=== PATIENT | female | born 1940 | race Caucasian/White ===

== ENCOUNTER 2021-08-06 01:25 | Inpatient (IN) | payer MEDICARE, OTHER ==
[2021-08-06] VITALS (9 sets, daily range): BP systolic 158–199; BP diastolic 67–88
[~2021-08-06] VITALS: Ht 147.3 cm; Wt 60.7 kg
[2021-08-06] MEDS ORDERED: OMEP20TA63 PO (02:26)
[2021-08-06] MEDS ORDERED: ASPI-886 PO (02:26)
[2021-08-06] MEDS ORDERED: HYDR-2145 PO (02:26)
[2021-08-06] MEDS ORDERED: iron PO (02:26)
[2021-08-06] MEDS ORDERED: METO25TA2 PO (02:26)
[2021-08-06] MEDS ORDERED: ALPR0.25 PO (02:26)
[2021-08-06] MEDS ORDERED: LISI-130 PO (02:26)
[2021-08-06] MEDS ORDERED: ISOS30TA68 PO (02:26)
[2021-08-06] MEDS ORDERED: LEVO50TA PO (02:26)
[2021-08-06] MEDS ORDERED: CRESTOR40 MG PO (02:26)
[2021-08-06] MEDS: ACETAMINOPHEN 325 MG TABLET. PO PRN ×2 (04:00→14:38)
[2021-08-06] MEDS: LABETALOL 20 MG/4 ML DISP.SYRIN. IVP PRN ×2 (04:00→08:28)
[2021-08-06] MEDS: ONDANSETRON PF 4 MG/2 ML VIAL. IVP PRN ×3 (04:01→20:27)
[2021-08-06] MEDS: PANTOPRAZOLE 40 MG TABLET.DR. PO SCH (05:57)
[2021-08-06] MEDS: LEVOTHYROXINE 50 MCG TABLET PO SCH (05:57)
--- NOTE | 2021-08-06 08:13 | PDOC1 ---
History and Physical Date of Service: DOS: DATE: 08/06/21 TIME: 08:12 Chief Complaint: Chief Complain: Altered mental status. History of Present Illness: HPI: History obtained from discussion with the ED physician and chart review: 80-year-old female with past medical history of hypothyroidism, gastroparesis, hypertension who comes in with altered mental status. Family states that patient has been acting confused for 5 days and the patient also has been complaining of fatigue, nausea or vomiting. Patient was transferred from [facility] ER for evaluation with neurology and possible MRI of the brain to rule out stroke. Patient currently is AAO x4 but currently has bouts of confusion and forgetfulness and she tends to repeat herself during conversation. Denies any falls or obvious trauma. UA is negative for any signs of infection. Normal saline bolus was given at [facility] for possible dehydration. Per GI: She saw Dr. Weiss in clinic in 03/2021 for nausea. Notes indicate Reglan, Zofran, and e-mycin were unhelpful and cardiac stress test and echo were unrevealing. Recommendation made for cardiac cath prior to second GI opinion at . Reviewed notes from encounter w/ Dr. Ramirez at on . She reported spells of nausea for 3-4 days along w/ decreased appetite and early satiety. Previous GES @ [facility] showed 40% retention @ 4 hours per patient. Also c/o constipation (3-4 stools weekly). Recommendation to check cortisol and GES and to try Compazine 10mg TID PRN w/ possible plans to try Relgn if GES is abnormal. Records of suggested testing unavailable for review. The patient reports GES at was normal and that she stopped e-mycin and did well for a month. Records indicate that she's had multiple EGDs. S/p gastric sleeve. Normal colonoscopy in 2019. S/p cholecystectomy. Takes ASA QHS and Advil PRN for headaches which occur when she doesn't eat. Says she was compliant w/ medications (specifically HTN meds) at home and says she takes Prilosec and iron QD. Past Medical/Surgical History: PMH/PSH: PMH: migraine, hypothyroidism, HTN, HLD, GERD, anemia, arthritis PSURGHx: cholecystectomy, hysterectomy, tubal ligation, gastric balloon, gastric sleeve, Allergies: Allergies: Coded Allergies: bacitracin (Verified Allergy, Intermediate, 08/06/21) neomycin (Verified Allergy, Intermediate, 08/06/21) polymyxin B (Verified Allergy, Intermediate, 08/06/21) povidone-iodine (Verified Allergy, Intermediate, 08/06/21) soap (Verified Allergy, Intermediate, 08/06/21) Family History: Family History: Reviewed with no relevant findings in the chart Social History: Social History: Denies any alcohol, drug or tobacco abuse Current Medications: Current Medications Current Medications Aspirin (Ecotrin) 81 mg DAILY PO ; Start 08/06/21 at 09:00 Hydrochlorothiazide (Hydrodiuril) 25 mg DAILY PO ; Start 08/06/21 at 09:00 Isosorbide Mononitrate (Imdur) 30 mg DAILY PO ; Start 08/06/21 at 09:00 Levothyroxine Sodium (Synthroid) 50 mcg DAILY06 PO Last administered on 08/06/21at 05:57; Start 08/06/21 at 06:00 Lisinopril (Prinivil) 40 mg QHS PO ; Start 08/06/21 at 21:00 Metoprolol Succinate (Toprol Xl) 25 mg DAILY PO ; Start 08/06/21 at 09:00 Pantoprazole Sodium (Protonix) 40 mg DAILYAC PO Last administered on 08/06/21at 05:57; Start 08/06/21 at 07:30 Atorvastatin Calcium (Lipitor) 80 mg QHS PO ; Start 08/06/21 at 21:00 Acetaminophen (Tylenol) 650 mg PRN Q6HRS PRN PO MILD PAIN / TEMP > 100.3'F Last administered on 08/06/21at 04:00; Start 08/06/21 at 03:45 Ondansetron HCl (Zofran) 4 mg PRN Q6HRS PRN IVP NAUSEA/VOMITING 1ST CHOICE Last administered on 08/06/21at 04:01; Start 08/06/21 at 03:45 Labetalol HCl (Normodyne Iv Push) 20 mg PRN Q2HR PRN IVP HYPERTENSION Last administered on 08/06/21at 04:00; Start 08/06/21 at 03:45 Active Scripts Active Reported Hydrochlorothiazide Tablet (Hydrochlorothiazide) 25 Mg Tablet 25 Mg PO DAILY Aspirin Ec (Aspirin) 81 Mg Tablet.dr 81 Mg PO DAILY [iron] 65 Mg PO DAILY Xanax (Alprazolam) 0.25 Mg Tablet 0.25 Mg PO PRN Q12HR PRN Prilosec Otc (Omeprazole Magnesium) 20 Mg Tablet.dr 20 Mg PO DAILY Crestor (Rosuvastatin Calcium) 40 Mg Tablet 20 Mg PO HS Isosorbide Mononitrate Er (Isosorbide Mononitrate) 30 Mg Tab.er.24h 30 Mg PO DAILY Synthroid (Levothyroxine Sodium) 50 Mcg Tablet 50 Mcg PO DAILYAC Lisinopril 40 Mg Tablet 40 Mg PO QHS Toprol Xl (Metoprolol Succinate) 25 Mg Tab.er.24h 25 Mg PO DAILY ROS: Review of Systems Review of System REVIEW OF SYSTEMS: GENERAL: Positive for weight loss and fatigue SKIN: No bruising, hair changes or rashes. EYES: No blurred, double or loss of vision. NOSE AND THROAT: No history of nosebleeds, hoarseness or sore throat. HEART: No history of palpitations, chest pain or shortness of breath on exertion. LUNGS: Denies cough, hemoptysis, wheezing or shortness of breath. GASTROINTESTINAL: Positive for nausea GENITOURINARY: No history of frequency, urgency, hesitancy or nocturia. NEUROLOGIC: Denies history of numbness, tingling, or tremor. PSYCHIATRIC: No history of panic, anxiety or depression. ENDOCRINE: No history of heat or cold intolerance, polyuria or polydipsia. EXTREMITIES: Denies joint pain, pain on walking or stiffness. Physical Exam: Vital Signs: Vital Signs Date Time Temp Pulse Resp B/P (MAP) Pulse Ox O2 Delivery O2 Flow Rate FiO2 08/06/21 07:58 98.5 72 18 199/88 (125) 96 Room Air 98.5 Physcial Exam: General: Well developed, well nourished, no acute distress, well appearing HEENT: Pupils equally round and reactive to light, EOMI, no discharge, normal conjunctiva Neck: Supple, no nuchal rigidity, no JVD, trachea midline, no tenderness Cardiac: RRR, no murmurs, no gallops, no rubs Chest/Lungs: CTAB, no wheeze, no rhonchi, no crackles Abdomen: soft, non-distended, no guarding, no peritoneal signs, non-tender Back: No tenderness Extremities: no edema, pulses intact, non-tender,capillary refill <3 sec bilateral upper and lower extremities, Neuro: Alert and oriented x 4, no focal deficits, normal speech Labs: Labs: Labs significant for hemoglobin of 16, sodium of 145, BNP of 1256 potassium 3.4 Images: Images CXR Impression: 1. No acute cardiopulmonary process. Negative head CT Assessment/Plan Assessment/Plan Problem List: Acute encephalopathy Acute metabolic encephalopathy Acute electrolyte derangementhypernatremia suggestive of dehydration. Erythrocytosis suggestive of dehydration Hypertensive urgency JACKELINE due to vasomotor nephropathy ATN Hx of GERD Hx of HTN Hx of gastroparesis Hx of gastric sleeve Hx of hypothyroidism Hx of migraines Admit to hospitalist service for further management Pending brain MRI No obvious centrally acting medications currently. No obvious signs of infection on physical exam. No fevers or nuchal rigidity. CT head is negative for acute etiology. No history or signs of trauma Pending FeNa calculation for volume depletion Pending TSH, B12, folate levels Pending urine toxic drug screen Consider dementia prevention protocol Provide adequate lighting (open curtains during the day, turn the lights off at night) Provide frequent personal contact with family, friends, and staff or TV Encourage early and frequent mobilization Rehab screening ordered IV Haldol as needed for agitation, consider sitter as needed if non-redirectable agitation Avoid physical restraints, catheters or tubes, and benzodiazepines Nutrition consult if there is malnutrition or concern for vitamin deficiencies Continue IV fluids GI consult for gastroparesis Lovenox for DVT prophylaxis Protonix GI prophylaxis ADA diet Full code Discussed with RN and AFIA Dispo inpatient management as above In addition to my E/M visit, advance care planning done with A total time of 20 minutes was spent from 830 to 850 face to face in discussion regarding the patient's goals of care, CODE STATUS. Justifications for Admission Other Justification JANES ANG MD Aug 06, 2021 08:13
[2021-08-06] MEDS: ASPIRIN ENTERIC COATED 81 MG TABLET.DR. PO SCH (08:26)
[2021-08-06] MEDS: METOPROLOL SUCC 24HR ER 25 MG TAB.ER.24H. PO SCH (08:26)
[2021-08-06] MEDS: ISOSORBIDE MONONITRATE ER 30 MG TAB.ER.24H PO SCH (08:26)
[2021-08-06] MEDS: hydroCHLOROthiazide 25 MG TABLET PO SCH (08:26)
--- NOTE | 2021-08-06 12:15 | PDOC2 ---
GI CONSULT Date of Service: DATE: 08/06/21 TIME: 11:42 Reason For Consult: h/o gastroparesis, diarrhea, nausea HPI: HPI: 80 y/o female sent from [facility]. Reviewed notes from there which suggest pt reported decreased appetite, fatigue/weakness, and n/v x 5 days. Then noted to be very forgetful and apparently denied n/v, but vomiting apparently observed by staff. Later, family reported pt acting confused at home x 5 days. Noted w/ hypertension in [facility] ER, sent to [facility] for brain MRI. D/w nurse here - ongoing confusion. Per records available in paper chart, workup @ [facility] included: WBC 10, Hgb 16.7, MCV 94, Cr 1, BUN 19, BNP 1296, lactic 1.8, normal troponin. CXR w/o acute findings. ER note indicates cultures ordered. Pt tells me has had nausea since last Friday w/o precipitating events. First denies vomiting, then reports it, then says "well I'm not eating so there's not much to come out." I asked about diarrhea - she says "some, but I always urinate a lot." Denies abdominal pain and bleeding. Says she's lost 10 pounds this week. Currently no nausea but her water tastes bad (I watched her drink some) and she wants something else to drink. She saw Dr. Weiss in clinic in 03/2021 for nausea. Notes indicate Reglan, Zofran, and e-mycin were unhelpful and cardiac stress test and echo were unreve aling. Recommendation made for cardiac cath prior to second GI opinion at . Reviewed notes from encounter w/ Dr. Ramirez at on . She reported spells of nausea for 3-4 days along w/ decreased appetite and early satiety. Previous GES @ [facility] showed 40% retention @ 4 hours per patient. Also c/o constipation (3-4 stools weekly). Recommendation to check cortisol and GES and to try Compazine 10mg TID PRN w/ possible plans to try Relgn if GES is abnormal. Records of suggested testing unavailable for review. The patient reports GES at was normal and that she stopped e-mycin and did well for a month. Records indicate that she's had multiple EGDs. S/p gastric sleeve. Normal colonoscopy in 2019. S/p cholecystectomy. Takes ASA QHS and Advil PRN for headaches which occur when she doesn't eat. Says she was compliant w/ medications (specifically HTN meds) at home and says she takes Prilosec and iron QD. PMH: PMH: migraine, hypothyroidism, HTN, HLD, GERD, anemia, arthritis cholecystectomy, hysterectomy, tubal ligation, gastric balloon, gastric sleeve, back surgery, ?hernia repair FH: Family History: DM, Hyperlipidemia, Hypertension ROS: GEN: +fatigue HEENT: Denies blurred vision, sore throat CV: Denies chest pain RESP: Denies shortness of air, cough GI: Per HPI : Denies hematuria, dysuria ENDO: +weight loss NEURO: +dizziness sometimes MSK: +headaches SKIN: Denies jaundice, pruritus Vitals: Vitals: Vital Signs Date Time Temp Pulse Resp B/P (MAP) Pulse Ox O2 Delivery O2 Flow Rate FiO2 08/06/21 11:03 98.4 70 18 181/82 (115) 96 Room Air 98.4 Allergies: Coded Allergies: bacitracin (Verified Allergy, Intermediate, 08/06/21) neomycin (Verified Allergy, Intermediate, 08/06/21) polymyxin B (Verified Allergy, Intermediate, 08/06/21) povidone-iodine (Verified Allergy, Intermediate, 08/06/21) soap (Verified Allergy, Intermediate, 08/06/21) Medications: Current Medications Medications (Trade) Dose Ordered Sig/Esha Route PRN Reason Start Time Stop Time Status Last Admin Dose Admin Aspirin (Ecotrin) 81 mg DAILY PO 08/06/21 09:00 08/06/21 08:26 Hydrochlorothiazide (Hydrodiuril) 25 mg DAILY PO 08/06/21 09:00 08/06/21 08:26 Isosorbide Mononitrate (Imdur) 30 mg DAILY PO 08/06/21 09:00 08/06/21 08:26 Levothyroxine Sodium (Synthroid) 50 mcg DAILY06 PO 08/06/21 06:00 08/06/21 05:57 Metoprolol Succinate (Toprol Xl) 25 mg DAILY PO 08/06/21 09:00 08/06/21 08:26 Pantoprazole Sodium (Protonix) 40 mg DAILYAC PO 08/06/21 07:30 08/06/21 05:57 Acetaminophen (Tylenol) 650 mg PRN Q6HRS PRN PO MILD PAIN / TEMP > 100.3'F 08/06/21 03:45 08/06/21 04:00 Ondansetron HCl (Zofran) 4 mg PRN Q6HRS PRN IVP NAUSEA/VOMITING 1ST CHOICE 08/06/21 03:45 08/06/21 04:01 Labetalol HCl (Normodyne Iv Push) 20 mg PRN Q2HR PRN IVP HYPERTENSION 08/06/21 03:45 08/06/21 08:28 Imaging: Imaging: see HPI PE: GEN: NAD HEENT: Atraumatic, PERRL LUNGS: CTAB HEART: RRR ABD: NABS, S/ND/NT EXTREMITY: No edema SKIN: No rashes, no jaundice NEURO/PSYCH: pleasantly confused/forgetful/wandering discussion A/P: A/P: AMS, HTN N/v, early satiety - seems to be a chronic issue - recently had second GI opinion @ [facility] ?GERD S/p gastric sleeve H/o gastroparesis CRC screen - UTD (2019) S/p cholecystectomy Headaches w/ NSAID use R/o COVID ?non-compliance -- Treat HTN, await brain MRI. Okay to advance diet as tolerated and observe per GI - pt asked me for Sprite - d/w nurse. Consider abd imaging if not tolerated. Continue PPI. Seems ?past/current use of e-mycin - consider restarting (though our records indicate this was ineffective). ?diarrhea - observe and evaluate further if truly has this (or constipation as indicated in outside records). PERICO PICKARD Aug 06, 2021 12:15
--- NOTE | 2021-08-06 13:05 | NUR ---
SS following for discharge planning. SS reviewed pt chart and discussed with pt RN. Pt is from home and is currently on room air. Cardiology, GI, and Neurology consulted. Brain MRI ordered. Pt having some confusion. SS will continue to follow for discharge planning.
--- NOTE | 2021-08-06 14:12 | PDOC2 ---
NEUROLOGY CONSULT Date of Service DOS: DATE: 08/06/21 TIME: 14:06 Reason for Consult Reason for Consult: Alok Hayes is an 80-year-old woman who presented to [facility] with confusion. She reports that she has had 5 days of extremely severe nausea. She has known gastroparesis but the nausea was much worse than usual. Her family had noted that she had been acting confused. She was transferred to [facility] emergency room and ultimately transferred to [facility] for further investigation. According to records she was forgetful and had a tendency to repeat herself during a conversation. She does not have a history of trauma to her head. She did not have evidence of a urinary tract infection. She was given a bolus of normal saline at [facility] for possible dehydration. She does recall seeing the GI nurse practitioner earlier today and had seen her previously. Patient claims to have headache but is not unusual as she often has headaches. She does not complain of other pain. She does not complain of weakness or numbness on one side of the body or the other. She has not been eating as much because of the nausea. Past medical history: Migraine headache, hypothyroidism, hypertension, hyperlipidemia, gastroesophageal reflux disease, anemia, arthritis, cholecystectomy, hysterectomy, tubal ligation, gastric sleeve and gastric balloon. Referring Physician Referring Physician: Dr. Matheus Pozo Current Medications Current Medications Current Medications Aspirin (Ecotrin) 81 mg DAILY PO Last administered on 08/06/21at 08:26; Start 08/06/21 at 09:00 Hydrochlorothiazide (Hydrodiuril) 25 mg DAILY PO Last administered on 08/06/21at 08:26; Start 08/06/21 at 09:00 Isosorbide Mononitrate (Imdur) 30 mg DAILY PO Last administered on 08/06/21at 08:26; Start 08/06/21 at 09:00 Levothyroxine Sodium (Synthroid) 50 mcg DAILY06 PO Last administered on 08/06/21at 05:57; Start 08/06/21 at 06:00 Lisinopril (Prinivil) 40 mg QHS PO ; Start 08/06/21 at 21:00 Metoprolol Succinate (Toprol Xl) 25 mg DAILY PO Last administered on 08/06/21at 08:26; Start 08/06/21 at 09:00 Pantoprazole Sodium (Protonix) 40 mg DAILYAC PO Last administered on 08/06/21at 05:57; Start 08/06/21 at 07:30 Atorvastatin Calcium (Lipitor) 80 mg QHS PO ; Start 08/06/21 at 21:00 Acetaminophen (Tylenol) 650 mg PRN Q6HRS PRN PO MILD PAIN / TEMP > 100.3'F Last administered on 08/06/21at 04:00; Start 08/06/21 at 03:45 Ondansetron HCl (Zofran) 4 mg PRN Q6HRS PRN IVP NAUSEA/VOMITING 1ST CHOICE Last administered on 08/06/21at 04:01; Start 08/06/21 at 03:45 Labetalol HCl (Normodyne Iv Push) 20 mg PRN Q2HR PRN IVP HYPERTENSION Last administered on 08/06/21at 08:28; Start 08/06/21 at 03:45 Active Scripts Active Reported Hydrochlorothiazide Tablet (Hydrochlorothiazide) 25 Mg Tablet 25 Mg PO DAILY Aspirin Ec (Aspirin) 81 Mg Tablet.dr 81 Mg PO DAILY [iron] 65 Mg PO DAILY Xanax (Alprazolam) 0.25 Mg Tablet 0.25 Mg PO PRN Q12HR PRN Prilosec Otc (Omeprazole Magnesium) 20 Mg Tablet.dr 20 Mg PO DAILY Crestor (Rosuvastatin Calcium) 40 Mg Tablet 20 Mg PO HS Isosorbide Mononitrate Er (Isosorbide Mononitrate) 30 Mg Tab.er.24h 30 Mg PO DAILY Synthroid (Levothyroxine Sodium) 50 Mcg Tablet 50 Mcg PO DAILYAC Lisinopril 40 Mg Tablet 40 Mg PO QHS Toprol Xl (Metoprolol Succinate) 25 Mg Tab.er.24h 25 Mg PO DAILY Allergies Allergies: Coded Allergies: bacitracin (Verified Allergy, Intermediate, 08/06/21) neomycin (Verified Allergy, Intermediate, 08/06/21) polymyxin B (Verified Allergy, Intermediate, 08/06/21) povidone-iodine (Verified Allergy, Intermediate, 08/06/21) soap (Verified Allergy, Intermediate, 08/06/21) ROS Review of System Constitutional: Negative Eyes: Negative HENT: Negative Respiratory: Negative Cardiovascular: Negative GI: She has had severe nausea. : Negative Musculoskeletal: Negative Neurologic: She has had confusion. Hematologic: Negative Lymphatic: Negative Psychiatric: Negative Physical Exam Physical Examination He was alert, awake and cooperative. She had great difficulty grasping the concepts of the examination. She could eventually accomplish the task but it took quite a bit of explanation for each task. She was in isolation for potential Covid. The speech was fluent and clear. He had a good fund of recent and remote knowledge. Attention and concentration was impaired he was well- groomed and well-nourished. He was fully oriented. She initially could not r emember the name of the hospital but a few minutes later did not recall this fact. She was oriented to month and year. Examination of the cranial nerves revealed visual alvarez were full to confrontation. Extraocular movements were intact. The eyes were conjugate. Pursuit movements were smooth and saccadic movements were without dysmetria. The pupils were 3 millimeters and reacted to light. There was no afferent pupillary defect. Facial sensation was intact. The muscles of mastication and facial expression were powerful symmetrically. Hearing was intact to finger rub. The palate arch symmetrically and the tongue was midline with full range of motion. Sternocleidomastoid and trapezius were powerful bilaterally. Muscle bulk and tone was normal. There was no arm drift or abnormal movement. The power was full and symmetric in the upper extremities. Power was generally diminished with hip, knees and ankles 4+/5 symmetrically. Reflexes were 2/4 and symmetric in the upper and lower extremities. The toes were downgoing bilaterally. Coordination testing with finger to nose, heel to zabala, fine motor and rapid alternating movements was well performed. The sensory examination was intact to pain, light touch, proprioception, graphesthesia, cold thermal and vibration. There was no extinction to double simultaneous stimulation. The gait was not testable. Pulse was strong and symmetric in the hands and feet. Carotid pulse was strong and symmetric. Peripheral pulses are 2/4 at the wrists and feet. There was no edema or cyanosis of the extremities. Vitals VITALS Vital Signs Date Time Temp Pulse Resp B/P (MAP) Pulse Ox O2 Delivery O2 Flow Rate FiO2 08/06/21 11:03 98.4 70 18 181/82 (115) 96 Room Air 98.4 Images Images MRI of the brain is pending. Assessment/Plan Assessment/Plan Patient is a pleasant 80-year-old woman who has had confusion for the last 5 days. I do not see anything focal on her examination. Strength, coordination, sensation and reflexes are symmetric. She does however appear encephalopathic which may be due to poor oral intake. It is reasonable to perform an MRI of her brain to make certain there has not been a stroke and sometimes a stroke in the parietal lobe can provoke some confusion. It is possible there is an underlying dementia so she has a low threshold for developing encephalopathy. We will check labs for deficiency states and inflammation. I appreciate being involved in her care. SONNY CHAPMAN MD Aug 06, 2021 14:12
[2021-08-06] MEDS ORDERED: hydrALAZINE 20 MG/ML VIAL. IVP PRN (14:30)
[2021-08-06] MEDS ORDERED: LISINOPRIL 20 MG TABLET PO SCH (14:30)
--- NOTE | 2021-08-06 16:48 | PDOC2 ---
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 coronary disease REFERRING PHYSICIAN Referring Physician: Dr. Weiss SOURCE Source: Chart review, Patient HISTORY OF PRESENT ILLNESS HISTORY OF PRESENT ILLNESS This is a 80 yo female who presented to [facility] secondary to altered mental status and recurrent nausea/vomiting x 5 days. Family noted patient to be confused all day prior to arrival. Blood pressure was significantly elevated upon arrival. CT head did not show any acute changes. Was transferred to [facility] for MRI. Patient denies any chest pain, palpitations, dizziness, or shortness of breath. Patient has a history of gastroparesis, chronic nausea. She reported spells of nausea for 3-4 days along w/ decreased appetite and early satiety. Has followed with Dr. Weiss on an outpatient basis and also has 2nd opinion at [facility] for same. Recommendation was made for cardiac cath to r/o cardiac etiology, prior to second GI opinion at . PAST MEDICAL HISTORY Cardiovascular: HTN GI: GERD Heme/Onc: Cancer (colon) Endocrine: Hypothyroidism PAST SURGICAL HISTORY Past Surgical History: Cholecystectomy, Tubal Ligation, Hysterectomy, Colon Resection, Other (gastric baloon, gastric sleeve) FAMILY HISTORY Family History: Diabetes, Hypertension SOCIAL HISTORY Smoke: No ALCOHOL: none Drugs: None Lives: Alone CURRENT MEDICATIONS CURRENT MEDICATIONS Current Medications Medications (Trade) Dose Ordered Sig/Esha Route PRN Reason Start Time Stop Time Status Last Admin Dose Admin Aspirin (Ecotrin) 81 mg DAILY PO 08/06/21 09:00 08/06/21 08:26 Hydrochlorothiazide (Hydrodiuril) 25 mg DAILY PO 08/06/21 09:00 08/06/21 08:26 Isosorbide Mononitrate (Imdur) 30 mg DAILY PO 08/06/21 09:00 08/06/21 08:26 Levothyroxine Sodium (Synthroid) 50 mcg DAILY06 PO 08/06/21 06:00 08/06/21 05:57 Metoprolol Succinate (Toprol Xl) 25 mg DAILY PO 08/06/21 09:00 08/06/21 08:26 Pantoprazole Sodium (Protonix) 40 mg DAILYAC PO 08/06/21 07:30 08/06/21 05:57 Acetaminophen (Tylenol) 650 mg PRN Q6HRS PRN PO MILD PAIN / TEMP > 100.3'F 08/06/21 03:45 08/06/21 14:38 Ondansetron HCl (Zofran) 4 mg PRN Q6HRS PRN IVP NAUSEA/VOMITING 1ST CHOICE 08/06/21 03:45 08/06/21 14:47 Labetalol HCl (Normodyne Iv Push) 20 mg PRN Q2HR PRN IVP HYPERTENSION (2ND CHOICE) 08/06/21 03:45 08/06/21 08:28 Hydralazine HCl (Apresoline Inj) 10 mg PRN Q4HRS PRN IVP ELEVATED BP, SEE COMMENTS 08/06/21 14:30 08/06/21 14:38 Amlodipine Besylate (Norvasc) 10 mg DAILY PO 08/06/21 14:30 08/06/21 14:39 ALLERGIES ALLERGIES: Coded Allergies: bacitracin (Verified Allergy, Intermediate, 08/06/21) neomycin (Verified Allergy, Intermediate, 08/06/21) polymyxin B (Verified Allergy, Intermediate, 08/06/21) povidone-iodine (Verified Allergy, Intermediate, 08/06/21) soap (Verified Allergy, Intermediate, 08/06/21) ROS Review of System 14 point ROS conducted with pertinent positives noted above in hPI PHYSICAL EXAM General: Alert, Oriented X3, Cooperative, No acute distress HEENT: Atraumatic Lungs: Clear to auscultation Heart: Regular rate Abdomen: Soft, No tenderness Extremities: No edema, Normal pulses Skin: No significant lesion Neuro: Normal speech, Sensation intact Psych/Mental Status: Mood NL, Other (forgetful ) MUSCULOSKELETAL: Osteoarthritic changes both hands VITALS/I&O VITALS/I&O: Vital Signs Date Time Temp Pulse Resp B/P (MAP) Pulse Ox O2 Delivery O2 Flow Rate FiO2 08/06/21 15:02 98.2 84 18 199/86 (123) 97 Room Air 98.2 I & O 08/05/21 08/05/21 08/06/21 15:00 23:00 07:00 Output Total 100 ml Balance -100 ml LABS Lab: Laboratory Tests Test 08/06/21 14:54 Erythrocyte Sedimentation Rate 2 (0-25) C-Reactive Protein, Quantitative 1.2 mg/L (0-3.3) Thyroid Stimulating Hormone (TSH) 0.663 uIU/mL (0.358-3.74) STRESS TEST STRESS TEST 04/08/13 - Procedure: GATED REGADENOSON THALLIUM MPI STRESS TEST SUMMARY/OPINION: This study is abnormal with what appears to be mild to moderate ischemia in the inferior wall, most likely in the right coronary territory. Global left ventricular function is within normal limits. Other high risk indicators are not noted. This study was read in conjunction with [facility] [employer] In aggregate the current study is intermediate risk in regards to predicted annual cardiovascular mortality rate. ASSESSMENT/PLAN ASSESSMENT/PLAN 1. Metabolic encephalopathy; CT head without acute findings 2. Hypertensive urgency; remains elevated 3. Recurrent nausea/vomiting; GI recommending to r/o cardiac etiology 4. H/o gastroparesis, GERD, gastric sleeve 5. Hypothyroidism Recommendations Add amlodipine for BP control Hydralazine IV PRN Lipids Echocardiogram Probable outpatient ischemic evaluation Supportive care Follow neuro, GI recs NICKO TRIVEDI MD 08/07/21 0930: CARDIAC CONSULT ASSESSMENT/PLAN ASSESSMENT/PLAN Patient seen and examined 08/06/21. Agree with GARDEN CONSULTANT's assessment and plan. Doubt if patient's symptoms are cardiac in etiology Agree with adding amlodipine for better BP control Check 2D echo to assess LVF and rule out WMA Plan ischemic evaluation as outpatient Thank you for your consultation PRISCILLA RUIZ APRN Aug 06, 2021 16:48 NICKO TRIVEDI MD Aug 07, 2021 09:30
[2021-08-06] MEDS: ATORVASTATIN CALCIUM 40 MG TABLET. PO SCH (20:27)
[2021-08-06] MEDS: LISINOPRIL 20 MG TABLET PO SCH (20:28)
[2021-08-07 03:35] VITALS: BP 157/69
[2021-08-07] MEDS: PANTOPRAZOLE 40 MG TABLET.DR. PO SCH (04:57)
[2021-08-07] MEDS: ONDANSETRON PF 4 MG/2 ML VIAL. IVP PRN (04:57)
[2021-08-07] MEDS: LEVOTHYROXINE 50 MCG TABLET PO SCH (04:57)
[2021-08-07 07:00] VITALS: BP 169/74
[2021-08-07 07:10] LABS: CHOLESTEROL/HDL RATIO 2.1
[2021-08-07 09:04] LABS: BASO % 1 % (0-3); EOS # 0.1 x10^3/uL (0.0-0.7); EOS % 2 % (0-3); HEMATOCRIT 47.3 % (36.0-47.0); HEMOGLOBIN 15.8 g/dL (12.0-15.5); LYMPH # 1.7 x10^3/uL (1.0-4.8); LYMPH % 20 % (24-48); MEAN CORPUSCULAR HEMOGLOBIN 31 pg (25-35); MEAN CORPUSCULAR HGB CONC 33 g/dL (31-37); MEAN CORPUSCULAR VOLUME 93 fL (79-100); MONO # 1.2 x10^3/uL (0.0-1.1); MONO % 14 % (0-9); NEUT # 5.6 x10^3/uL (1.8-7.7); NEUT % 64 % (31-73); PLATELET COUNT 195 x10^3/uL (140-400); RED CELL DISTRIBUTION WIDTH 15.5 % (11.5-14.5); WHITE BLOOD COUNT 8.6 x10^3/uL (4.0-11.0)
[2021-08-07 09:06] LABS: CALCIUM 9.6 mg/dL (8.5-10.1); CREATININE 0.9 mg/dL (0.6-1.0); GFR 60.1; MAGNESIUM 1.8 mg/dL (1.8-2.4)
[2021-08-07 09:19] LABS: POTASSIUM 2.9 mmol/L (3.5-5.1)
[2021-08-07] MEDS: hydroCHLOROthiazide 25 MG TABLET PO SCH (10:05)
[2021-08-07] MEDS: ASPIRIN ENTERIC COATED 81 MG TABLET.DR. PO SCH (10:05)
[2021-08-07] MEDS: METOPROLOL SUCC 24HR ER 25 MG TAB.ER.24H. PO SCH (10:07)
[2021-08-07] MEDS: ISOSORBIDE MONONITRATE ER 30 MG TAB.ER.24H PO SCH (10:08)
--- NOTE | 2021-08-07 10:10 | PDOC ---
Date of Service: DATE: 08/07/21 TIME: 10:05 Subjective: Subjective: Feeling better than she has in a long time. Back from echo, ate some of sausage. Doesn't want eggs or pancakes but would like toast. Didn't eat much yesterday. Denies vomiting and diarrhea since admission. Objective: Objective: Brain MRI ordered. Vital Signs: Vital Signs Date Time Temp Pulse Resp B/P (MAP) Pulse Ox O2 Delivery O2 Flow Rate FiO2 08/07/21 07:00 98.8 79 18 169/74 (105) 95 Room Air 98.8 Imaging: Echo 08/07 pending PE: GEN: NAD LUNGS: CTAB HEART: RRR ABD: S/ND/NT NEURO/PSYCH: A & O 3 A/P: Encephalopathy, HTN - neuro and cardiology following Chronic n/v, s/p gastric sleeve - recent GI eval @ [facility] Hypokalemia - per primary -- Appreciate cardiology help - recommendation for ischemic eval as outpt. Trying PO - observe. (I passed along her request for toast to staff who ordered from kitchen.) Continue PPI. Justicifation of Admission Dx: Justifications for Admission: Justification of Admission Dx: Yes PERICO PICKARD Aug 07, 2021 10:10
[2021-08-07 10:30] VITALS: BP 138/65
--- NOTE | 2021-08-07 11:32 | NUR ---
SS following up with discharge planning. SS reviewed pt chart and discussed with pt RN. Pt is currently on room air. Cardiology, Neurology, and GI following. Potassium 2.9. Brain MRI ordered. ECHO this AM. PO diet. Probable need for PT/OT to assess prior to discharge. SS will continue to follow for discharge planning.
--- NOTE | 2021-08-07 12:06 | PDOC ---
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 08/07/21 1206: CARDIO Progress Notes Date and Time Date of Service 08/07/2021 Time of Evaluation 1140 Subjective Subjective: No Chest Pain, No shortness of breath, No Palpitations Vitals Vitals Vital Signs Date Time Temp Pulse Resp B/P (MAP) Pulse Ox O2 Delivery O2 Flow Rate FiO2 08/07/21 10:30 98.9 81 16 138/65 (89) 96 Room Air 98.9 Weight Weight [ ] Input and Output Intake and Output Intake and Output 08/07/21 07:00 Intake Total 530 ml Output Total 700 ml Balance -170 ml Intake Oral 530 ml Output Urine Total 700 ml # Voids 5 Laboratory Labs Laboratory Tests Test 08/06/21 14:54 08/07/21 05:20 Erythrocyte Sedimentation Rate 2 (0-25) C-Reactive Protein, Quantitative 1.2 mg/L (0-3.3) Vitamin B12 Level 409 pg/mL (247-911) Thyroid Stimulating Hormone (TSH) 0.663 uIU/mL (0.358-3.74) White Blood Count 8.6 x10^3/uL (4.0-11.0) Red Blood Count 5.10 x10^6/uL (3.50-5.40) Hemoglobin 15.8 g/dL (12.0-15.5) Hematocrit 47.3 % (36.0-47.0) Mean Corpuscular Volume 93 fL (79-100) Mean Corpuscular Hemoglobin 31 pg (25-35) Mean Corpuscular Hemoglobin Concent 33 g/dL (31-37) Red Cell Distribution Width 15.5 % (11.5-14.5) Platelet Count 195 x10^3/uL (140-400) Neutrophils (%) (Auto) 64 % (31-73) Lymphocytes (%) (Auto) 20 % (24-48) Monocytes (%) (Auto) 14 % (0-9) Eosinophils (%) (Auto) 2 % (0-3) Basophils (%) (Auto) 1 % (0-3) Neutrophils # (Auto) 5.6 x10^3/uL (1.8-7.7) Lymphocytes # (Auto) 1.7 x10^3/uL (1.0-4.8) Monocytes # (Auto) 1.2 x10^3/uL (0.0-1.1) Eosinophils # (Auto) 0.1 x10^3/uL (0.0-0.7) Basophils # (Auto) 0.0 x10^3/uL (0.0-0.2) Sodium Level 143 mmol/L (136-145) Potassium Level 2.9 mmol/L (3.5-5.1) Chloride Level 102 mmol/L (98-107) Carbon Dioxide Level 30 mmol/L (21-32) Anion Gap 11 (6-14) Blood Urea Nitrogen 10 mg/dL (7-20) Creatinine 0.9 mg/dL (0.6-1.0) Estimated GFR (Cockcroft-Gault) 60.1 Glucose Level 100 mg/dL (70-99) Calcium Level 9.6 mg/dL (8.5-10.1) Magnesium Level 1.8 mg/dL (1.8-2.4) Triglycerides Level 79 mg/dL (0-150) Cholesterol Level 168 mg/dL (0-200) LDL Cholesterol, Calculated 71 mg/dL (0-100) VLDL Cholesterol, Calculated 16 mg/dL (0-40) Non-HDL Cholesterol Calculated 87 mg/dL (0-129) HDL Cholesterol 81 mg/dL (40-60) Cholesterol/HDL Ratio 2.1 Physical Exam HEENT: Neck Supple W Full Motion Chest: Symmetric LUNGS: Clear to Auscultation Heart: S1S2, RRR (SR possible WAP) Abdomen: Soft N/T Extremities: No Edema, No Calf Tenderness Neurology: alert, oriented, follow commands Assessment Assessment 1. Metabolic encephalopathy; CT head without acute findings Resolved 2. Hypertensive urgency; better 3. Recurrent nausea/vomiting; GI recommending to r/o cardiac etiology. no further n/v 4. H/o gastroparesis, GERD, gastric sleeve 5. Hypothyroidism 6. Hypokalemia Recommendations Continue current BP regimen. Replace K TTE Probable outpatient ischemic evaluation Supportive care Follow neuro, GI recs Justicifation of Admission Dx: Justifications for Admission: Justification of Admission Dx: Yes NICKO TRIVEDI MD 08/07/21 5346: CARDIO Progress Notes Assessment Assessment Patient seen and examined. Agree with HOOKER INSPECTOR's assessment and plan. Nausea vomiting improved. Doubt if patient's symptoms are cardiac in etiology Blood pressure better controlled. Check 2D echo to assess LVF and rule out WMA Plan ischemic evaluation as outpatient JAZMIN AGUIRRE APRN Aug 07, 2021 12:06 NICKO TRIVEDI MD Aug 07, 2021 16:26
[2021-08-07] MEDS: POTASSIUM CHLORIDE 20 MEQ TABLET.ER. PO SCH ×3 (12:14→20:31)
--- NOTE | 2021-08-07 12:59 | PDOC ---
[employer] PROGRESS NOTE Date of Service DOS: DATE: 08/07/21 TIME: 12:54 Chief Complaint Chief Complaint Assessment/Plan Problem List: Acute encephalopathy Acute metabolic encephalopathy Acute electrolyte derangementhypernatremia suggestive of dehydration. Erythrocytosis suggestive of dehydration Hypertensive urgency JACKELINE due to vasomotor nephropathy ATN Hx of GERD Hx of HTN Hx of gastroparesis Hx of gastric sleeve Hx of hypothyroidism Hx of migraines Cardiology consulted for CAD work-up. Pending echo Pending brain MRI No obvious centrally acting medications currently. No obvious signs of infection on physical exam. No fevers or nuchal rigidity. CT head is negative for acute etiology. No history or signs of trauma Pending FeNa calculation for volume depletion Pending TSH, B12, folate levels Pending urine toxic drug screen Consider dementia prevention protocol Provide adequate lighting (open curtains during the day, turn the lights off at night) Provide frequent personal contact with family, friends, and staff or TV Encourage early and frequent mobilization Rehab screening ordered IV Haldol as needed for agitation, consider sitter as needed if non-redirectable agitation Avoid physical restraints, catheters or tubes, and benzodiazepines Nutrition consult if there is malnutrition or concern for vitamin deficiencies Continue IV fluids GI consult for gastroparesis Lovenox for DVT prophylaxis Protonix GI prophylaxis ADA diet Full code Discussed with RN and SW Dispo inpatient management as above History of Present Illness History of Present Illness 80-year-old female with past medical history of hypothyroidism, gastroparesis, hypertension who comes in with altered mental status. Family states that patient has been acting confused for 5 days and the patient also has been c omplaining of fatigue, nausea or vomiting. Patient was transferred from [facility] ER for evaluation with neurology and possible MRI of the brain to rule out stroke. Patient currently is AAO x4 but currently has bouts of confusion and forgetfulness and she tends to repeat herself during conversation. Denies any falls or obvious trauma. UA is negative for any signs of infection. Normal saline bolus was given at [facility] for possible dehydration. Per GI: She saw Dr. Weiss in clinic in 03/2021 for nausea. Notes indicate Reglan, Zofran, and e-mycin were unhelpful and cardiac stress test and echo were unrevealing. Recommendation made for cardiac cath prior to second GI opinion at . Reviewed notes from encounter w/ Dr. Ramirez at on . She reported spells of nausea for 3-4 days along w/ decreased appetite and early satiety. Previous GES @ [facility] showed 40% retention @ 4 hours per patient. Also c/o constipation (3-4 stools weekly). Recommendation to check cortisol and GES and to try Compazine 10mg TID PRN w/ possible plans to try Relgn if GES is abnormal. Records of suggested testing unavailable for review. The patient reports GES at was normal and that she stopped e-mycin and did well for a month. Records indicate that she's had multiple EGDs. S/p gastric sleeve. Normal colonoscopy in 2019. S/p cholecystectomy. Takes ASA QHS and Advil PRN for headaches which occur when she doesn't eat. Says she was compliant w/ medications (specifically HTN meds) at home and says she takes Prilosec and iron QD. 08/07/2021 No acute events overnight. Patient seen examined bedside. Does not like the food in the hospital. Denies any vomiting. Pleasantly confused and forgetful. Potassium of 2.9 will replace with IV NPO potassium chloride. Vitals/I&O Vitals/I&O: Vital Signs Date Time Temp Pulse Resp B/P (MAP) Pulse Ox O2 Delivery O2 Flow Rate FiO2 08/07/21 10:30 98.9 81 16 138/65 (89) 96 Room Air 98.9 I & O 08/06/21 08/06/21 08/07/21 15:00 23:00 07:00 Intake Total 400 ml 130 ml Output Total 400 ml 300 ml Balance 0 ml -170 ml Physical Exam General: Alert, Oriented X3, Cooperative, No acute distress Heart: Regular rate Abdomen: Soft, No tenderness Extremities: No edema, Normal pulses Skin: No significant lesion Labs Labs: Laboratory Tests Test 08/06/21 14:54 08/07/21 05:20 Erythrocyte Sedimentation Rate 2 (0-25) C-Reactive Protein, Quantitative 1.2 mg/L (0-3.3) Vitamin B12 Level 409 pg/mL (247-911) Thyroid Stimulating Hormone (TSH) 0.663 uIU/mL (0.358-3.74) White Blood Count 8.6 x10^3/uL (4.0-11.0) Red Blood Count 5.10 x10^6/uL (3.50-5.40) Hemoglobin 15.8 g/dL (12.0-15.5) Hematocrit 47.3 % (36.0-47.0) Mean Corpuscular Volume 93 fL (79-100) Mean Corpuscular Hemoglobin 31 pg (25-35) Mean Corpuscular Hemoglobin Concent 33 g/dL (31-37) Red Cell Distribution Width 15.5 % (11.5-14.5) Platelet Count 195 x10^3/uL (140-400) Neutrophils (%) (Auto) 64 % (31-73) Lymphocytes (%) (Auto) 20 % (24-48) Monocytes (%) (Auto) 14 % (0-9) Eosinophils (%) (Auto) 2 % (0-3) Basophils (%) (Auto) 1 % (0-3) Neutrophils # (Auto) 5.6 x10^3/uL (1.8-7.7) Lymphocytes # (Auto) 1.7 x10^3/uL (1.0-4.8) Monocytes # (Auto) 1.2 x10^3/uL (0.0-1.1) Eosinophils # (Auto) 0.1 x10^3/uL (0.0-0.7) Basophils # (Auto) 0.0 x10^3/uL (0.0-0.2) Sodium Level 143 mmol/L (136-145) Potassium Level 2.9 mmol/L (3.5-5.1) Chloride Level 102 mmol/L (98-107) Carbon Dioxide Level 30 mmol/L (21-32) Anion Gap 11 (6-14) Blood Urea Nitrogen 10 mg/dL (7-20) Creatinine 0.9 mg/dL (0.6-1.0) Estimated GFR (Cockcroft-Gault) 60.1 Glucose Level 100 mg/dL (70-99) Calcium Level 9.6 mg/dL (8.5-10.1) Magnesium Level 1.8 mg/dL (1.8-2.4) Triglycerides Level 79 mg/dL (0-150) Cholesterol Level 168 mg/dL (0-200) LDL Cholesterol, Calculated 71 mg/dL (0-100) VLDL Cholesterol, Calculated 16 mg/dL (0-40) Non-HDL Cholesterol Calculated 87 mg/dL (0-129) HDL Cholesterol 81 mg/dL (40-60) Cholesterol/HDL Ratio 2.1 Comment Review of Relevant I have reviewed the following items andrew (where applicable) has been applied. Medications: Current Medications Medications (Trade) Dose Ordered Sig/Esha Route PRN Reason Start Time Stop Time Status Last Admin Dose Admin Lisinopril (Prinivil) 40 mg QHS PO 08/06/21 21:00 08/06/21 20:28 Atorvastatin Calcium (Lipitor) 80 mg QHS PO 08/06/21 21:00 08/06/21 20:27 Hydralazine HCl (Apresoline Inj) 10 mg PRN Q4HRS PRN IVP ELEVATED BP, SEE COMMENTS 08/06/21 14:30 08/06/21 14:38 Amlodipine Besylate (Norvasc) 10 mg DAILY PO 08/06/21 14:30 08/07/21 09:00 Potassium Chloride (Klor-Con) 40 meq Q4HRS PO 08/07/21 12:00 08/07/21 16:01 08/07/21 12:14 Justifications for Admission Other Justification JANES ANG MD Aug 07, 2021 12:59
[2021-08-07] MEDS ORDERED: POTASSIUM CHLORIDE 20 MEQ TABLET.ER. PO ONE (13:00)
[2021-08-07 14:33] VITALS: BP 142/64
--- NOTE | 2021-08-07 15:21 | RAD ---
EXAM: Brain MRI without contrast. HISTORY: Confusion. TECHNIQUE: Multiplanar, multisequence magnetic resonance imaging of the brain was performed without c ontrast. COMPARISON: Head CT dated 08/05/2021. FINDINGS: There is no restricted diffusion to suggest acute or subacute infarction. There is no mass effect or midline shift. There is no susceptibility effect. There is mild cerebral volume loss. There are nonspecific focal areas of signal change within the cerebral white matter, likely due to chronic small vessel disease. There is no evidence of lens surgery. There is a tiny right maxillary sinus mu cous retention cyst. The mastoid air cells are unremarkable. There are normal flow voids within the c erebral vessels. There is no suspicious calvarial lesion. There is degenerative change involving the cervical spine. IMPRESSION: 1. No acute intracranial finding. 2. Scattered focal areas of signal change within the cerebral white matter, most commonly due to levee superintendent barbara small vessel disease in patients of this age. 3. Mild age-appropriate cerebral volume loss. Electronically signed by: An Perry MD (08/07/2021 3:18 PM) [id number]
--- NOTE | 2021-08-07 17:03 | CARD ---
MR#: [id number] Date of Study: 08/07/2021 Ordering Physician: PRISCILLA RUIZ, Referring Physician: PRISCILLA RUIZ, Tech: Shelly Vincent [facility] APPROVED REPORT EXAM: Two-dimensional and M-mode echocardiogram with Doppler and color Doppler. Other Information Quality : AverageHR: 80bpm Rhythm : NSR INDICATION Abnormal ECG Fatigue RISK FACTORS Hypertension 2D DIMENSIONS RVDd2.5 (2.9-3.5cm)Left Atrium(2D)3.3 (1.6-4.0cm) IVSd1.2 (0.7-1.1cm)Aortic Root(2D)2.7 (2.0-3.7cm) LVDd4.2 (3.9-5.9cm)LVOT Diameter2.0 (1.8-2.4cm) PWd1.1 (0.7-1.1cm)IVSs1.6 (0.8-1.2cm) LVDs2.6 (2.5-4.0cm)FS (%) 37.6 % PWs1.7 (0.8-1.2cm)SV54.0 ml LVEF(%)68.1 (>50%) Aortic Valve AoV Peak Richard.123.0cm/sAoV VTI16.3cm AO Peak GR.6.1mmHgLVOT Peak Richard.109.5cm/s LVOT VTI 17.28cmAO Mean GR.3mmHg HARINDER (VMAX)2.24kd7KVC (VTI)3.22cm2 Mitral Valve MV E Delwdexy72.7cm/sMV DECEL [id number] MV A Idkrifnr33.9cm/sMV CKN75my E/A Ratio0.4MVA (PHT)4.47cm2 TDI E/Lateral E'5.6E/Medial E'6.2 Pulmonary Valve PV Peak Aswfzgzm642.4cm/sPV Peak Grad.4mmHg Tricuspid Valve TR P. Tbyywmle296qr/sTR Peak Gr.22mmHg LEFT VENTRICLE The left ventricle is normal size. There is mild concentric left ventricular hypertrophy. The left ve ntricular systolic function is normal and the ejection fraction is within normal range. Estimated eje ction fraction 65%. There is normal LV segmental wall motion. Transmitral Doppler flow pattern is Gra de I-abnormal relaxation pattern. RIGHT VENTRICLE The right ventricle is normal size. There is normal right ventricular wall thickness. The right ventr icular systolic function is normal. ATRIA The left atrium size is normal. The right atrium size is normal. The interatrial septum is intact wit h no evidence for an atrial septal defect or patent foramen ovale as noted on 2-D or Doppler imaging. AORTIC VALVE The aortic valve is normal in structure and function. Doppler and Color Flow revealed no significant aortic regurgitation. There is no significant aortic valvular stenosis. MITRAL VALVE The mitral valve is normal in structure and function. There is no evidence of mitral valve prolapse. There is no mitral valve stenosis. Doppler and Color Flow revealed no mitral valve regurgitation note d. TRICUSPID VALVE The tricuspid valve is normal in structure and function. Doppler and Color Flow revealed mild tricusp id regurgitation. Estimated PAP 25-30 mmHg. There is no tricuspid valve stenosis. PULMONIC VALVE Doppler and Color Flow revealed no pulmonic valvular regurgitation. There is no pulmonic valvular nic nosis. GREAT VESSELS The aortic root is normal in size. The ascending aorta is normal in size. The IVC is normal in size a nd collapses >50% with inspiration. PERICARDIAL EFFUSION There is no evidence of significant pericardial effusion. Critical Notification Critical Value: No <Conclusion> The left ventricular systolic function is normal and the ejection fraction is within normal range. E stimated ejection fraction 65%. There is normal LV segmental wall motion. Doppler and Color Flow revealed mild tricuspid regurgitation. Estimated PAP 25-30 mmHg. Signed by : Taiwo Gupta, Electronically Approved : 08/07/2021 17:03:09
--- NOTE | 2021-08-07 17:45 | PDOC ---
PROGRESS NOTES Date of Service DATE: 08/07/21 TIME: 17:42 Assessment 1. Patient has been encephalopathic possibly from poor oral intake and dehydration. She is clinically improving. She is much more animated and alert. She clearly remembers meeting me yesterday and the issues we discussed. I am still concerned there may be underlying dementia but this can be tested after she has recovered from this acute illness and as an outpatient. I am relieved that the MRI brain did not reveal evidence for acute stroke. Current exam continues to be nonfocal. She may be dismissed from a neurologic perspective when medically stable. 2. She has gastroparesis which she informed me not less than 4 times during our conversation. 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 Subjective I am feeling much better. I do not like the food here and I do not even like the taste of the water. I can drink cranberry juice. The lunch look good but it tasted horrible. Objective Vital Signs Date Time Temp Pulse Resp B/P (MAP) Pulse Ox O2 Delivery O2 Flow Rate FiO2 08/07/21 14:33 98.7 79 18 142/64 (90) 94 Room Air 98.7 Intake and Output 08/07/21 07:00 Intake Total 530 ml Output Total 700 ml Balance -170 ml Intake Oral 530 ml Output Urine Total 700 ml # Voids 5 PHYSICAL EXAM She was alert, awake and cooperative. Speech was somewhat rapid. She did have a tendency to repeat herself at times. The eyes were conjugate and face was symmetric. Movements were symmetric and well coordinated. Sitting balance was normal. Review of Relevant I have reviewed the following items andrew (where applicable) has been applied. Labs Laboratory Tests Test 08/06/21 14:54 08/07/21 05:20 Erythrocyte Sedimentation Rate 2 (0-25) C-Reactive Protein, Quantitative 1.2 mg/L (0-3.3) Vitamin B12 Level 409 pg/mL (247-911) Thyroid Stimulating Hormone (TSH) 0.663 uIU/mL (0.358-3.74) White Blood Count 8.6 x10^3/uL (4.0-11.0) Red Blood Count 5.10 x10^6/uL (3.50-5.40) Hemoglobin 15.8 g/dL (12.0-15.5) Hematocrit 47.3 % (36.0-47.0) Mean Corpuscular Volume 93 fL (79-100) Mean Corpuscular Hemoglobin 31 pg (25-35) Mean Corpuscular Hemoglobin Concent 33 g/dL (31-37) Red Cell Distribution Width 15.5 % (11.5-14.5) Platelet Count 195 x10^3/uL (140-400) Neutrophils (%) (Auto) 64 % (31-73) Lymphocytes (%) (Auto) 20 % (24-48) Monocytes (%) (Auto) 14 % (0-9) Eosinophils (%) (Auto) 2 % (0-3) Basophils (%) (Auto) 1 % (0-3) Neutrophils # (Auto) 5.6 x10^3/uL (1.8-7.7) Lymphocytes # (Auto) 1.7 x10^3/uL (1.0-4.8) Monocytes # (Auto) 1.2 x10^3/uL (0.0-1.1) Eosinophils # (Auto) 0.1 x10^3/uL (0.0-0.7) Basophils # (Auto) 0.0 x10^3/uL (0.0-0.2) Sodium Level 143 mmol/L (136-145) Potassium Level 2.9 mmol/L (3.5-5.1) Chloride Level 102 mmol/L (98-107) Carbon Dioxide Level 30 mmol/L (21-32) Anion Gap 11 (6-14) Blood Urea Nitrogen 10 mg/dL (7-20) Creatinine 0.9 mg/dL (0.6-1.0) Estimated GFR (Cockcroft-Gault) 60.1 Glucose Level 100 mg/dL (70-99) Calcium Level 9.6 mg/dL (8.5-10.1) Magnesium Level 1.8 mg/dL (1.8-2.4) Triglycerides Level 79 mg/dL (0-150) Cholesterol Level 168 mg/dL (0-200) LDL Cholesterol, Calculated 71 mg/dL (0-100) VLDL Cholesterol, Calculated 16 mg/dL (0-40) Non-HDL Cholesterol Calculated 87 mg/dL (0-129) HDL Cholesterol 81 mg/dL (40-60) Cholesterol/HDL Ratio 2.1 Laboratory Tests Test 08/07/21 05:20 White Blood Count 8.6 x10^3/uL (4.0-11.0) Red Blood Count 5.10 x10^6/uL (3.50-5.40) Hemoglobin 15.8 g/dL (12.0-15.5) Hematocrit 47.3 % (36.0-47.0) Mean Corpuscular Volume 93 fL (79-100) Mean Corpuscular Hemoglobin 31 pg (25-35) Mean Corpuscular Hemoglobin Concent 33 g/dL (31-37) Red Cell Distribution Width 15.5 % (11.5-14.5) Platelet Count 195 x10^3/uL (140-400) Neutrophils (%) (Auto) 64 % (31-73) Lymphocytes (%) (Auto) 20 % (24-48) Monocytes (%) (Auto) 14 % (0-9) Eosinophils (%) (Auto) 2 % (0-3) Basophils (%) (Auto) 1 % (0-3) Neutrophils # (Auto) 5.6 x10^3/uL (1.8-7.7) Lymphocytes # (Auto) 1.7 x10^3/uL (1.0-4.8) Monocytes # (Auto) 1.2 x10^3/uL (0.0-1.1) Eosinophils # (Auto) 0.1 x10^3/uL (0.0-0.7) Basophils # (Auto) 0.0 x10^3/uL (0.0-0.2) Sodium Level 143 mmol/L (136-145) Potassium Level 2.9 mmol/L (3.5-5.1) Chloride Level 102 mmol/L (98-107) Carbon Dioxide Level 30 mmol/L (21-32) Anion Gap 11 (6-14) Blood Urea Nitrogen 10 mg/dL (7-20) Creatinine 0.9 mg/dL (0.6-1.0) Estimated GFR (Cockcroft-Gault) 60.1 Glucose Level 100 mg/dL (70-99) Calcium Level 9.6 mg/dL (8.5-10.1) Magnesium Level 1.8 mg/dL (1.8-2.4) Triglycerides Level 79 mg/dL (0-150) Cholesterol Level 168 mg/dL (0-200) LDL Cholesterol, Calculated 71 mg/dL (0-100) VLDL Cholesterol, Calculated 16 mg/dL (0-40) Non-HDL Cholesterol Calculated 87 mg/dL (0-129) HDL Cholesterol 81 mg/dL (40-60) Cholesterol/HDL Ratio 2.1 Medications Current Medications Aspirin (Ecotrin) 81 mg DAILY PO Last administered on 08/07/21 10:05; Start 08/06/21 at 09:00 Hydrochlorothiazide (Hydrodiuril) 25 mg DAILY PO Last administered on 08/07/21 10:05; Start 08/06/21 at 09:00 Isosorbide Mononitrate (Imdur) 30 mg DAILY PO Last administered on 08/07/21 10:08; Start 08/06/21 at 09:00 Levothyroxine Sodium (Synthroid) 50 mcg DAILY06 PO Last administered on 08/07/21 04:57; Start 08/06/21 at 06:00 Lisinopril (Prinivil) 40 mg QHS PO Last administered on 08/06/21 20:28; Start 08/06/21 at 21:00 Metoprolol Succinate (Toprol Xl) 25 mg DAILY PO Last administered on 08/07/21 10:07; Start 08/06/21 at 09:00 Pantoprazole Sodium (Protonix) 40 mg DAILYAC PO Last administered on 08/07/21 04:57; Start 08/06/21 at 07:30 Atorvastatin Calcium (Lipitor) 80 mg QHS PO Last administered on 08/06/21 20:27; Start 08/06/21 at 21:00 Acetaminophen (Tylenol) 650 mg PRN Q6HRS PRN PO MILD PAIN / TEMP > 100.3'F Last administered on 08/06/21 14:38; Start 08/06/21 at 03:45 Ondansetron HCl (Zofran) 4 mg PRN Q6HRS PRN IVP NAUSEA/VOMITING 1ST CHOICE Last administered on 08/07/21 04:57; Start 08/06/21 at 03:45 Labetalol HCl (Normodyne Iv Push) 20 mg PRN Q2HR PRN IVP HYPERTENSION (2ND CHOICE) Last administered on 08/06/21 08:28; Start 08/06/21 at 03:45 Lisinopril (Prinivil) 20 mg DAILY PO ; Start 08/06/21 at 14:30; Status UNV Hydralazine HCl (Apresoline Inj) 10 mg PRN Q4HRS PRN IVP ELEVATED BP, SEE COMMENTS Last administered on 08/06/21at 14:38; Start 08/06/21 at 14:30 Amlodipine Besylate (Norvasc) 10 mg DAILY PO Last administered on 08/07/21at 09:00; Start 08/06/21 at 14:30 Potassium Chloride (Klor-Con) 40 meq Q4HRS PO Last administered on 08/07/21at 15:55; Start 08/07/21 at 12:00; Stop 08/07/21 at 16:01; Status DC Potassium Chloride (Klor-Con) 40 meq BID PO ; Start 08/07/21 at 21:00; Stop 08/08/21 at 20:59 Potassium Chloride (Klor-Con) 40 meq 1X ONCE PO ; Start 08/07/21 at 13:00; Stop 08/07/21 at 13:01; Status Cancel Active Scripts Active Reported Hydrochlorothiazide Tablet (Hydrochlorothiazide) 25 Mg Tablet 25 Mg PO DAILY Aspirin Ec (Aspirin) 81 Mg Tablet.dr 81 Mg PO DAILY [iron] 65 Mg PO DAILY Xanax (Alprazolam) 0.25 Mg Tablet 0.25 Mg PO PRN Q12HR PRN Prilosec Otc (Omeprazole Magnesium) 20 Mg Tablet. 20 Mg PO DAILY Crestor (Rosuvastatin Calcium) 40 Mg Tablet 20 Mg PO HS Isosorbide Mononitrate Er (Isosorbide Mononitrate) 30 Mg Tab.er.24h 30 Mg PO DAILY Synthroid (Levothyroxine Sodium) 50 Mcg Tablet 50 Mcg PO DAILYAC Lisinopril 40 Mg Tablet 40 Mg PO QHS Toprol Xl (Metoprolol Succinate) 25 Mg Tab.er.24h 25 Mg PO DAILY Vitals/I & O Vital Sign - Last 24 Hours 08/06/21 08/06/21 08/06/21 08/06/21 19:55 20:00 20:28 22:55 Temp 98.8 97.8 98.8 97.8 Pulse 75 75 80 Resp 18 18 B/P (MAP) 173/70 (104) 173/70 165/72 (103) Pulse Ox 97 94 O2 Delivery Room Air Room Air Room Air 08/07/21 08/07/21 08/07/21 08/07/21 03:35 07:00 08:00 09:00 Temp 99.0 98.8 99.0 98.8 Pulse 78 79 80 Resp 18 18 B/P (MAP) 157/69 (98) 169/74 (105) 188/74 Pulse Ox 96 95 O2 Delivery Room Air Room Air Room Air 08/07/21 08/07/21 08/07/21 08/07/21 10:07 10:08 10:30 14:33 Temp 98.9 98.7 98.9 98.7 Pulse 80 80 81 79 Resp 16 18 B/P (MAP) 188/74 188/74 138/65 (89) 142/64 (90) Pulse Ox 96 94 O2 Delivery Room Air Room Air Intake and Output 08/06/21 08/06/21 08/07/21 15:00 23:00 07:00 Intake Total 400 ml 130 ml Output Total 400 ml 300 ml Balance 0 ml -170 ml Justicifation of Admission Dx: Justifications for Admission: Justification of Admission Dx: Yes SONNY CHAPMAN MD Aug 07, 2021 17:45
[2021-08-07 19:40] VITALS: BP 124/58
[2021-08-07] MEDS: LISINOPRIL 20 MG TABLET PO SCH (20:30)
[2021-08-07] MEDS: ATORVASTATIN CALCIUM 40 MG TABLET. PO SCH (20:30)
[2021-08-07 22:53] VITALS: BP 187/82
[2021-08-08] MEDS: ACETAMINOPHEN 325 MG TABLET. PO PRN (00:02)
[2021-08-08 02:35] VITALS: BP 137/61
[2021-08-08] MEDS: LEVOTHYROXINE 50 MCG TABLET PO SCH (04:13)
[2021-08-08] MEDS: PANTOPRAZOLE 40 MG TABLET.DR. PO SCH (04:13)
[2021-08-08 07:00] VITALS: BP 159/85
[2021-08-08] MEDS: 1/2 NORMAL SALINE IV SCH ×4 (08:51→22:30)
[2021-08-08] MEDS: METOPROLOL SUCC 24HR ER 25 MG TAB.ER.24H. PO SCH (08:58)
[2021-08-08] MEDS: ASPIRIN ENTERIC COATED 81 MG TABLET.DR. PO SCH (08:58)
[2021-08-08] MEDS: hydroCHLOROthiazide 25 MG TABLET PO SCH (08:58)
[2021-08-08] MEDS: ISOSORBIDE MONONITRATE ER 30 MG TAB.ER.24H PO SCH (09:00)
[2021-08-08] MEDS: POTASSIUM CHLORIDE 20 MEQ TABLET.ER. PO SCH (09:01)
--- NOTE | 2021-08-08 09:21 | PDOC ---
JAZMIN AGUIRRE [employer]RE BU[employer]ER 08/08/21 0921: CARDIO Progress Notes Date and Time Date of Service 08/08/2021 Time of Evaluation 1050 Subjective Subjective: No Chest Pain, No shortness of breath, No Palpitations Vitals Vitals Vital Signs Date Time Temp Pulse Resp B/P (MAP) Pulse Ox O2 Delivery O2 Flow Rate FiO2 08/08/21 09:00 70 155/67 08/08/21 07:41 Room Air 08/08/21 02:35 98.9 18 96 98.9 Weight Weight [ ] Input and Output Intake and Output Intake and Output 08/08/21 07:00 Intake Total 400 ml Output Total 200 ml Balance 200 ml Intake Oral 400 ml Output Urine Total 200 ml # Voids 1 Physical Exam HEENT: Neck Supple W Full Motion Chest: Symmetric LUNGS: Clear to Auscultation Heart: S1S2, RRR (SR possible WAP) Abdomen: Soft N/T Extremities: No Edema, No Calf Tenderness Neurology: alert, oriented, follow commands Assessment Assessment 1. Metabolic encephalopathy; CT head without acute findings Resolved 2. Hypertensive urgency; betterEF and WM nml per TTE 3. Recurrent nausea/vomiting; not related to ischemia 4. H/o gastroparesis, GERD, gastric sleeve 5. Hypothyroidism 6. Hypokalemia: replaced Recommendations I talked to Dr. 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 Will try to obtain this record Continue current BP regimen Supportive care Follow neuro, GI recs Justicifation of Admission Dx: Justifications for Admission: Justification of Admission Dx: Yes NICKO TRIVEDI MD 08/08/21 1646: CARDIO Progress Notes Assessment Assessment Patient seen and examined. Agree with ROOMING HOUSE INSPECTOR's assessment and plan. Nausea vomiting improved. Doubt if patient's symptoms are cardiac in etiology Blood pressure better controlled. 2D echo showed LVEF 65%. Recent cardiac catheterization at [facility] showed only mild CAD. Mesenteric angiogram at that time did not show any significant stenosis. Okay for DC from cardiac standpoint. JAZMIN AGUIRRE APRN Aug 08, 2021 09:21 NICKO TRIVEDI MD Aug 08, 2021 16:46
[2021-08-08 10:02] LABS: BASO # 0.1 x10^3/uL (0.0-0.2); BASO % 1 % (0-3); EOS # 0.1 x10^3/uL (0.0-0.7); EOS % 2 % (0-3); HEMATOCRIT 49.5 % (36.0-47.0); HEMOGLOBIN 16.4 g/dL (12.0-15.5); LYMPH # 1.6 x10^3/uL (1.0-4.8); LYMPH % 20 % (24-48); MEAN CORPUSCULAR HEMOGLOBIN 31 pg (25-35); MEAN CORPUSCULAR HGB CONC 33 g/dL (31-37); MEAN CORPUSCULAR VOLUME 94 fL (79-100); MONO # 1.1 x10^3/uL (0.0-1.1); MONO % 13 % (0-9); NEUT # 5.4 x10^3/uL (1.8-7.7); NEUT % 65 % (31-73); PLATELET COUNT 188 x10^3/uL (140-400); RED BLOOD COUNT 5.27 x10^6/uL (3.50-5.40); RED CELL DISTRIBUTION WIDTH 15.2 % (11.5-14.5); WHITE BLOOD COUNT 8.4 x10^3/uL (4.0-11.0)
[2021-08-08 10:06] LABS: CALCIUM 8.9 mg/dL (8.5-10.1); CREATININE 1.2 mg/dL (0.6-1.0); GFR 43.1; MAGNESIUM 1.7 mg/dL (1.8-2.4); PHOSPHORUS 2.2 mg/dL (2.6-4.7); POTASSIUM 4.4 mmol/L (3.5-5.1)
[2021-08-08 11:00] VITALS: BP 137/74
--- NOTE | 2021-08-08 11:42 | PDOC ---
Date of Service: DATE: 08/08/21 TIME: 11:38 Subjective: Subjective: Back pain. Less nausea, eating some (applesauce and toast). Now looking at menu - thinks lunch and dinner look good today - asked me twice what day it was. Doesn't want Ensure - too sweet. Objective: Vital Signs: Vital Signs Date Time Temp Pulse Resp B/P (MAP) Pulse Ox O2 Delivery O2 Flow Rate FiO2 08/08/21 09:00 70 155/67 08/08/21 07:41 Room Air 08/08/21 07:00 18 97 08/08/21 02:35 98.9 98.9 Labs: Laboratory Tests Test 08/08/21 09:38 White Blood Count 8.4 x10^3/uL Red Blood Count 5.27 x10^6/uL Hemoglobin 16.4 g/dL Hematocrit 49.5 % Mean Corpuscular Volume 94 fL Mean Corpuscular Hemoglobin 31 pg Mean Corpuscular Hemoglobin Concent 33 g/dL Red Cell Distribution Width 15.2 % Platelet Count 188 x10^3/uL Neutrophils (%) (Auto) 65 % Lymphocytes (%) (Auto) 20 % Monocytes (%) (Auto) 13 % Eosinophils (%) (Auto) 2 % Basophils (%) (Auto) 1 % Neutrophils # (Auto) 5.4 x10^3/uL Lymphocytes # (Auto) 1.6 x10^3/uL Monocytes # (Auto) 1.1 x10^3/uL Eosinophils # (Auto) 0.1 x10^3/uL Basophils # (Auto) 0.1 x10^3/uL Sodium Level 143 mmol/L Potassium Level 4.4 mmol/L Chloride Level 105 mmol/L Carbon Dioxide Level 27 mmol/L Anion Gap 11 Blood Urea Nitrogen 18 mg/dL Creatinine 1.2 mg/dL Estimated GFR (Cockcroft-Gault) 43.1 Glucose Level 140 mg/dL Calcium Level 8.9 mg/dL Phosphorus Level 2.2 mg/dL Magnesium Level 1.7 mg/dL PE: GEN: NAD - in recliner LUNGS: CTAB HEART: RRR ABD: NABS, S/ND/NT NEURO/PSYCH: pleasantly confused A/P: Encephalopathy - possible underlying dementia, plans for outpt neuro follow-up HTN - better, plans for outpt ischemic workup w/ cardiology Chronic n/v, s/p gastric sleeve - recent GI eval @ [facility] - no vomiting here -- Eating some, not vomiting. Encouraged PO - let us know if something sounds appetizing. Continue PPI. Dc per primary. Justicifation of Admission Dx: Justifications for Admission: Justification of Admission Dx: Yes PERICO PICKARD Aug 08, 2021 11:42
--- NOTE | 2021-08-08 12:03 | PDOC ---
[facility] PROGRESS NOTE Date of Service DOS: DATE: 08/08/21 TIME: 11:58 Chief Complaint Chief Complaint Assessment/Plan Problem List: Acute encephalopathy Acute metabolic encephalopathy Acute electrolyte derangementhypernatremia suggestive of dehydration. Erythrocytosis suggestive of dehydration Hypertensive urgency JACKELINE due to vasomotor nephropathy ATN Hx of GERD Hx of HTN Hx of gastroparesis Hx of gastric sleeve Hx of hypothyroidism Hx of migraines Cardiology consulted for CAD work-up. Pending echo Pending brain MRI No obvious centrally acting medications currently. No obvious signs of infection on physical exam. No fevers or nuchal rigidity. CT head is negative for acute etiology. No history or signs of trauma Pending FeNa calculation for volume depletion Pending TSH, B12, folate levels Pending urine toxic drug screen Consider dementia prevention protocol Provide adequate lighting (open curtains during the day, turn the lights off at night) Provide frequent personal contact with family, friends, and staff or TV Encourage early and frequent mobilization Rehab screening ordered IV Haldol as needed for agitation, consider sitter as needed if non-redirectable agitation Avoid physical restraints, catheters or tubes, and benzodiazepines Nutrition consult if there is malnutrition or concern for vitamin deficiencies Continue IV fluids GI consult for gastroparesis Lovenox for DVT prophylaxis Protonix GI prophylaxis ADA diet Full code Discussed with RN and SW Dispo inpatient management as above History of Present Illness History of Present Illness 80-year-old female with past medical history of hypothyroidism, gastroparesis, hypertension who comes in with altered mental status. Family states that patient has been acting confused for 5 days and the patient also has been c omplaining of fatigue, nausea or vomiting. Patient was transferred from [facility] ER for evaluation with neurology and possible MRI of the brain to rule out stroke. Patient currently is AAO x4 but currently has bouts of confusion and forgetfulness and she tends to repeat herself during conversation. Denies any falls or obvious trauma. UA is negative for any signs of infection. Normal saline bolus was given at [facility] for possible dehydration. Per GI: She saw Dr. eWiss in clinic in 03/2021 for nausea. Notes indicate Reglan, Zofran, and e-mycin were unhelpful and cardiac stress test and echo were unrevealing. Recommendation made for cardiac cath prior to second GI opinion at . Reviewed notes from encounter w/ Dr. Ramirez at on . She reported spells of nausea for 3-4 days along w/ decreased appetite and early satiety. Previous GES @ [facility] showed 40% retention @ 4 hours per patient. Also c/o constipation (3-4 stools weekly). Recommendation to check cortisol and GES and to try Compazine 10mg TID PRN w/ possible plans to try Relgn if GES is abnormal. Records of suggested testing unavailable for review. The patient reports GES at was normal and that she stopped e-mycin and did well for a month. Records indicate that she's had multiple EGDs. S/p gastric sleeve. Normal colonoscopy in 2019. S/p cholecystectomy. Takes ASA QHS and Advil PRN for headaches which occur when she doesn't eat. Says she was compliant w/ medications (specifically HTN meds) at home and says she takes Prilosec and iron QD. 08/07/2021 No acute events overnight. Patient seen examined bedside. Does not like the food in the hospital. Denies any vomiting. Pleasantly confused and forgetful. Potassium of 2.9 will replace with IV NPO potassium chloride. 08/08/2021 No acute events or night. Patient seen examined bedside. Cardiac work-up essentially negative for ACS. I have recommended for the patient to consider going to [facility] for continued investigation for her gastroparesis. Patient Carmen tolerate some toast and broth. She has nausea with other foods. Patient still has some polycythemia which I think is related to her dehydration. I have started her D5 half NS at 75 cc/h and bolus her 250 half NS. We will have Dr. Garay she has had injections in her back in the past. Evaluate for back pain. Patient's chart, labs, images were reviewed and discussed with RN Vitals/I&O Vitals/I&O: Vital Signs Date Time Temp Pulse Resp B/P (MAP) Pulse Ox O2 Delivery O2 Flow Rate FiO2 08/08/21 11:00 98.8 87 18 137/74 (95) 97 Room Air 98.8 I & O 08/07/21 08/07/21 08/08/21 15:00 23:00 07:00 Intake Total 200 ml 200 ml Output Total 200 ml Balance 200 ml 0 ml Physical Exam General: Alert, Oriented X3, Cooperative, No acute distress Heart: Regular rate Abdomen: Soft, No tenderness Extremities: No edema, Normal pulses Skin: No significant lesion Labs Labs: Laboratory Tests Test 08/08/21 09:38 White Blood Count 8.4 x10^3/uL (4.0-11.0) Red Blood Count 5.27 x10^6/uL (3.50-5.40) Hemoglobin 16.4 g/dL (12.0-15.5) Hematocrit 49.5 % (36.0-47.0) Mean Corpuscular Volume 94 fL (79-100) Mean Corpuscular Hemoglobin 31 pg (25-35) Mean Corpuscular Hemoglobin Concent 33 g/dL (31-37) Red Cell Distribution Width 15.2 % (11.5-14.5) Platelet Count 188 x10^3/uL (140-400) Neutrophils (%) (Auto) 65 % (31-73) Lymphocytes (%) (Auto) 20 % (24-48) Monocytes (%) (Auto) 13 % (0-9) Eosinophils (%) (Auto) 2 % (0-3) Basophils (%) (Auto) 1 % (0-3) Neutrophils # (Auto) 5.4 x10^3/uL (1.8-7.7) Lymphocytes # (Auto) 1.6 x10^3/uL (1.0-4.8) Monocytes # (Auto) 1.1 x10^3/uL (0.0-1.1) Eosinophils # (Auto) 0.1 x10^3/uL (0.0-0.7) Basophils # (Auto) 0.1 x10^3/uL (0.0-0.2) Sodium Level 143 mmol/L (136-145) Potassium Level 4.4 mmol/L (3.5-5.1) Chloride Level 105 mmol/L (98-107) Carbon Dioxide Level 27 mmol/L (21-32) Anion Gap 11 (6-14) Blood Urea Nitrogen 18 mg/dL (7-20) Creatinine 1.2 mg/dL (0.6-1.0) Estimated GFR (Cockcroft-Gault) 43.1 Glucose Level 140 mg/dL (70-99) Calcium Level 8.9 mg/dL (8.5-10.1) Phosphorus Level 2.2 mg/dL (2.6-4.7) Magnesium Level 1.7 mg/dL (1.8-2.4) Comment Review of Relevant I have reviewed the following items andrew (where applicable) has been applied. Medications: Current Medications Medications (Trade) Dose Ordered Sig/Esha Route PRN Reason Start Time Stop Time Status Last Admin Dose Admin Potassium Chloride (Klor-Con) 40 meq Q4HRS PO 08/07/21 12:00 08/07/21 16:01 DC 08/07/21 15:55 Potassium Chloride (Klor-Con) 40 meq BID PO 08/07/21 21:00 08/08/21 20:59 08/08/21 09:01 Sodium Chloride 250 ml @ 250 mls/hr Q1H IV 08/08/21 08:15 08/08/21 08:51 Justifications for Admission Other Justification JANES ANG MD Aug 08, 2021 12:03
--- NOTE | 2021-08-08 12:40 | CONS ---
DATE OF CONSULTATION: 08/08/2021 ATTENDING PHYSICIAN: Matheus Pozo MD REASON FOR CONSULTATION: The patient was seen at the request of Dr. Pozo for rehab evaluation. 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 She had a cane, uses once in a while. The patient with chronic lower back pain from degenerative disk disease and degenerative joint disease of lumbar vertebrae, for which she is being seen at the pain clinic for lumbar epidural steroid injections once in [address] Eaton. The patient also with known hypothyroidism, gastroparesis, hypertension, admitted with altered mental status on 08/06/2021 as per transfer from [facility]. The patient had CT scan and MRI scan of her brain, which failed to reveal any acute abnormality. It revealed changes of small vessel ischemic disease and mild cerebral atrophy. The patient admits some dizziness when coming to a sitting position from lying down. She admits chronic back pain. She denies any numbness, tingling sensation in the extremities. She usually participates in water aerobics on a regular basis. She uses a heating pad for her back. She has been taking tramadol for pain. ALLERGIES: THE PATIENT IS KNOWN ALLERGIC TO BACITRACIN, NEOMYCIN, POLYMYXIN B, POVIDONE-IODINE SOAP. PAST MEDICAL HISTORY: The patient also with history of migraine, hypothyroidism, gastroesophageal reflux disease, anemia, degenerative joint disease, status post cholecystectomy, hysterectomy, tubal ligation, gastric balloon, gastric sleeve placement. The patient denies any trouble with her bladder control. PHYSICAL EXAMINATION: GENERAL: Today revealed an elderly female. She is alert, oriented to time, place, person and circumstance and follows commands appropriately. NEUROLOGIC: Moves all 4 extremities voluntarily, where she had 4+/5 grade muscle strength. She had relative muscle atrophy involving thenar eminence muscles in both hands. Negative Tinel sign over median nerve at the wrist and over ulnar nerve at the wrist and elbow. She had crepitus on range of motion of her knees and both thumbs at the carpometacarpal joints with a deformity of her thumbs. The patient had pain-free range of motion of her hip joints. She had diffuse tenderness to palpation over thoracic and lumbar paraspinal muscles extending over to sacroiliac joint area, left side more than right side. Straight leg raising test is negative bilaterally. She had equal perception of touch and pinprick sensation bilaterally. Deep tendon reflexes are 1 to 2+ and symmetrical to absent ankle jerks. She is independent with bed mobility, transfers and up walking. She is not using proper body mechanics during mobility. She walked using a roller walker. Her blood pressure while supine being 154/97 mmHg, sitting up 128/74, standing up 124/72 mmHg. ASSESSMENT: Elderly female with chronic lower back and mid back pain from degenerative disk disease and degenerative joint disease of thoracolumbar vertebrae. No clinical evidence of ongoing lumbar radiculopathy, degenerative joint disease of both knees without any significant pain. Also, degenerative joint disease of bilateral thumb carpometacarpal joints with the deformities of her thumbs. No significant pain at present time. Clinical evidence of peripheral neuropathy. The patient with known hypertension, gastroesophageal reflux disease, hypothyroidism, migraine, hyperlipidemia, hypertension. RECOMMENDATIONS: To get her up as tolerated. Hopefully, home with outpatient followup when medically stable in the next day or so. Dr. Pozo, I appreciate asking me to participate in the care of this interesting patient. I will be glad to see her for followup with you on as-needed basis. HANS/ONUR DR: Rajeev TID: [id number]
[2021-08-08] MEDS: IV DEXTROSE 5 %-0.45 % NACL 1,000 ML IV SCH (12:59)
[2021-08-08] MEDS ORDERED: MAGNESIUM SULFATE 2GM 50 ML IV ONE (13:00)
--- NOTE | 2021-08-08 13:09 | NUR ---
SS following up with discharge planning. SS reviewed pt chart and discussed with pt RN. Pt is currently on room air. BPCI. Dr. Garay consulted today. PT/OT ordered. SS met with pt and discussed discharge planning. Pt reported that she will discharge to home with family and possible home healthcare services. Pt reported that she has sons and daughters that are physicians and nurses. Pt reported that she plans to follow up with services at the [facility] in [place], [place]. Physician notified. SS will continue to follow for discharge planning.
[2021-08-08 14:46] VITALS: BP 116/58
[2021-08-08] MEDS: traMADol 50 MG TABLET PO PRN (16:23)
[2021-08-08 19:00] VITALS: BP 149/69
[2021-08-08] MEDS: ATORVASTATIN CALCIUM 40 MG TABLET. PO SCH (20:47)
[2021-08-08] MEDS: LISINOPRIL 20 MG TABLET PO SCH (20:47)
[2021-08-08 22:22] VITALS: BP 135/61
[2021-08-09 02:43] VITALS: BP 164/69
[2021-08-09] MEDS: LEVOTHYROXINE 50 MCG TABLET PO SCH (05:37)
[2021-08-09] MEDS: PANTOPRAZOLE 40 MG TABLET.DR. PO SCH (05:37)
[2021-08-09] MEDS: IV DEXTROSE 5 %-0.45 % NACL 1,000 ML IV SCH ×2 (05:38→22:50)
[2021-08-09 07:00] VITALS: BP 144/74
[2021-08-09] MEDS: METOPROLOL SUCC 24HR ER 25 MG TAB.ER.24H. PO SCH (08:28)
[2021-08-09] MEDS: hydroCHLOROthiazide 25 MG TABLET PO SCH (08:28)
[2021-08-09] MEDS: ASPIRIN ENTERIC COATED 81 MG TABLET.DR. PO SCH (08:28)
[2021-08-09] MEDS: ISOSORBIDE MONONITRATE ER 30 MG TAB.ER.24H PO SCH (08:29)
[2021-08-09] MEDS: traMADol 50 MG TABLET PO PRN ×2 (08:33→21:08)
--- NOTE | 2021-08-09 10:20 | NUR ---
SS following up with discharge planning. SS reviewed pt chart an discussed with pt RN. Pt is currently on room air. PT/OT ordered. SS met with pt in room to discuss discharge planning. Pt requesting to speak with physician. Physician notified. SS contacted pt's son and pt's son reported that pt will most likely return to home with a retired RN friend or return to home with son. Pt's son agreeable to home healthcare services with no preference of company. Referral sent to [facility], ; fax [phone]. SS will continue to follow for discharge planning.
[2021-08-09 10:35] VITALS: BP 138/63
[2021-08-09 11:45] LABS: CALCIUM 9.5 mg/dL (8.5-10.1); CREATININE 0.9 mg/dL (0.6-1.0); GFR 60.1; MAGNESIUM 2.2 mg/dL (1.8-2.4)
[2021-08-09 12:06] LABS: BASO # 0.1 x10^3/uL (0.0-0.2); BASO % 1 % (0-3); EOS # 0.2 x10^3/uL (0.0-0.7); EOS % 3 % (0-3); HEMATOCRIT 48.3 % (36.0-47.0); HEMOGLOBIN 16.1 g/dL (12.0-15.5); LYMPH # 2.1 x10^3/uL (1.0-4.8); LYMPH % 25 % (24-48); MEAN CORPUSCULAR HEMOGLOBIN 31 pg (25-35); MEAN CORPUSCULAR HGB CONC 33 g/dL (31-37); MEAN CORPUSCULAR VOLUME 93 fL (79-100); MONO # 1.1 x10^3/uL (0.0-1.1); MONO % 13 % (0-9); NEUT % 58 % (31-73); PLATELET COUNT 199 x10^3/uL (140-400); RED BLOOD COUNT 5.19 x10^6/uL (3.50-5.40); RED CELL DISTRIBUTION WIDTH 15.4 % (11.5-14.5); WHITE BLOOD COUNT 8.6 x10^3/uL (4.0-11.0)
--- NOTE | 2021-08-09 12:21 | NUR ---
Patient constantly using the bedside commode at least once a hour, barely urinates anything. Will collect UA.
[2021-08-09 12:56] LABS: PLT ESTIMATE ADEQUATE (ADEQUATE)
--- NOTE | 2021-08-09 13:06 | PDOC ---
[employer] PROGRESS NOTE Date of Service DOS: DATE: 08/09/21 TIME: 13:04 Chief Complaint Chief Complaint Assessment/Plan Problem List: Acute encephalopathy Acute metabolic encephalopathy Acute electrolyte derangementhypernatremia suggestive of dehydration. Erythrocytosis suggestive of dehydration Hypertensive urgency JACKELINE due to vasomotor nephropathy ATN Hx of GERD Hx of HTN Hx of gastroparesis Hx of gastric sleeve Hx of hypothyroidism Hx of migraines Cardiology consulted for CAD work-up. Pending echo Pending brain MRI No obvious centrally acting medications currently. No obvious signs of infection on physical exam. No fevers or nuchal rigidity. CT head is negative for acute etiology. No history or signs of trauma Pending FeNa calculation for volume depletion Pending TSH, B12, folate levels Pending urine toxic drug screen Consider dementia prevention protocol Provide adequate lighting (open curtains during the day, turn the lights off at night) Provide frequent personal contact with family, friends, and staff or TV Encourage early and frequent mobilization Rehab screening ordered IV Haldol as needed for agitation, consider sitter as needed if non-redirectable agitation Avoid physical restraints, catheters or tubes, and benzodiazepines Nutrition consult if there is malnutrition or concern for vitamin deficiencies Continue IV fluids GI consult for gastroparesis Lovenox for DVT prophylaxis Protonix GI prophylaxis ADA diet Full code Discussed with RN and SW Dispo inpatient management as above History of Present Illness History of Present Illness 80-year-old female with past medical history of hypothyroidism, gastroparesis, hypertension who comes in with altered mental status. Family states that patient has been acting confused for 5 days and the patient also has been c omplaining of fatigue, nausea or vomiting. Patient was transferred from [facility] ER for evaluation with neurology and possible MRI of the brain to rule out stroke. Patient currently is AAO x4 but currently has bouts of confusion and forgetfulness and she tends to repeat herself during conversation. Denies any falls or obvious trauma. UA is negative for any signs of infection. Normal saline bolus was given at [facility] for possible dehydration. Per GI: She saw Dr. Weiss in clinic in 03/2021 for nausea. Notes indicate Reglan, Zofran, and e-mycin were unhelpful and cardiac stress test and echo were unrevealing. Recommendation made for cardiac cath prior to second GI opinion at . Reviewed notes from encounter w/ Dr. Ramirez at on . She reported spells of nausea for 3-4 days along w/ decreased appetite and early satiety. Previous GES @ [facility] showed 40% retention @ 4 hours per patient. Also c/o constipation (3-4 stools weekly). Recommendation to check cortisol and GES and to try Compazine 10mg TID PRN w/ possible plans to try Relgn if GES is abnormal. Records of suggested testing unavailable for review. The patient reports GES at was normal and that she stopped e-mycin and did well for a month. Records indicate that she's had multiple EGDs. S/p gastric sleeve. Normal colonoscopy in 2019. S/p cholecystectomy. Takes ASA QHS and Advil PRN for headaches which occur when she doesn't eat. Says she was compliant w/ medications (specifically HTN meds) at home and says she takes Prilosec and iron QD. 08/07/2021 No acute events overnight. Patient seen examined bedside. Does not like the food in the hospital. Denies any vomiting. Pleasantly confused and forgetful. Potassium of 2.9 will replace with IV NPO potassium chloride. 08/08/2021 No acute events or night. Patient seen examined bedside. Cardiac work-up essentially negative for ACS. I have recommended for the patient to consider going to [facility] for continued investigation for her gastroparesis. Patient Carmen tolerate some toast and broth. She has nausea with other foods. Patient still has some polycythemia which I think is related to her dehydration. I have started her D5 half NS at 75 cc/h and bolus her 250 half NS. We will have Dr. Garay she has had injections in her back in the past. Evaluate for back pain. Patient's chart, labs, images were reviewed and discussed with RN 08/09/2021 No acute events overnight. Patient seen examined bedside. All work-up is negative and all her review of her records have shown no reason for her gastroparesis. I will keep her on fluids today as she is still not eating very much. She is only able to tolerate some broth and toast. She is sitting on the commode several times last night and this morning and the nurse believes that she might have some urinary retention. UA is collected for possible UTI. CBC still shows hemoglobin of 16.1. I will continue her maintenance fluid today and continue to observe. Possible discharge tomorrow with her friend Radha who is also a nurse. Heavy snow today which presents transportation issues for many patients here today. Patient's chart, labs, images were reviewed and discussed with RN Vitals/I&O Vitals/I&O: Vital Signs Date Time Temp Pulse Resp B/P (MAP) Pulse Ox O2 Delivery O2 Flow Rate FiO2 08/09/21 10:35 98.3 67 18 138/63 (88) 91 Room Air 98.3 I & O 0 08/08/21 08/08/21 08/09/21 15:00 23:00 07:00 Intake Total 530 ml Output Total 475 ml Balance 530 ml -475 ml Physical Exam General: Alert, Oriented X3, Cooperative, No acute distress Heart: Regular rate Abdomen: Soft, No tenderness Extremities: No edema, Normal pulses Skin: No significant lesion Labs Labs: Laboratory Tests Test 08/09/21 11:25 White Blood Count 8.6 x10^3/uL (4.0-11.0) Red Blood Count 5.19 x10^6/uL (3.50-5.40) Hemoglobin 16.1 g/dL (12.0-15.5) Hematocrit 48.3 % (36.0-47.0) Mean Corpuscular Volume 93 fL (79-100) Mean Corpuscular Hemoglobin 31 pg (25-35) Mean Corpuscular Hemoglobin Concent 33 g/dL (31-37) Red Cell Distribution Width 15.4 % (11.5-14.5) Platelet Count 199 x10^3/uL (140-400) Neutrophils (%) (Auto) 58 % (31-73) Lymphocytes (%) (Auto) 25 % (24-48) Monocytes (%) (Auto) 13 % (0-9) Eosinophils (%) (Auto) 3 % (0-3) Basophils (%) (Auto) 1 % (0-3) Neutrophils # (Auto) 5.0 x10^3/uL (1.8-7.7) Lymphocytes # (Auto) 2.1 x10^3/uL (1.0-4.8) Monocytes # (Auto) 1.1 x10^3/uL (0.0-1.1) Eosinophils # (Auto) 0.2 x10^3/uL (0.0-0.7) Basophils # (Auto) 0.1 x10^3/uL (0.0-0.2) Platelet Estimate Adequate (ADEQUATE) Large Platelets Few Sodium Level 141 mmol/L (136-145) Potassium Level 4.0 mmol/L (3.5-5.1) Chloride Level 102 mmol/L (98-107) Carbon Dioxide Level 27 mmol/L (21-32) Anion Gap 12 (6-14) Blood Urea Nitrogen 19 mg/dL (7-20) Creatinine 0.9 mg/dL (0.6-1.0) Estimated GFR (Cockcroft-Gault) 60.1 Glucose Level 128 mg/dL (70-99) Calcium Level 9.5 mg/dL (8.5-10.1) Magnesium Level 2.2 mg/dL (1.8-2.4) Comment Review of Relevant I have reviewed the following items andrew (where applicable) has been applied. Medications: Current Medications Medications (Trade) Dose Ordered Sig/Esha Route PRN Reason Start Time Stop Time Status Last Admin Dose Admin Tramadol HCl (Ultram) 50 mg PRN Q8HRS PRN PO MODERATE-SEVERE PAIN 08/08/21 16:15 08/09/21 08:33 Justifications for Admission Other Justification JANES ANG MD Aug 09, 2021 13:06
[2021-08-09 15:00] VITALS: BP 157/65
[2021-08-09 19:32] VITALS: BP 135/63
[2021-08-09] MEDS: ATORVASTATIN CALCIUM 40 MG TABLET. PO SCH (21:06)
[2021-08-09] MEDS: LISINOPRIL 20 MG TABLET PO SCH (21:07)
[2021-08-09 22:09] VITALS: BP 136/62
[2021-08-09 22:44] LABS: BILIRUBIN,URINE NEGATIVE (NEG); CLARITY,URINE CLEAR; COLOR,URINE YELLOW; NITRITE,URINE NEGATIVE (NEG); PROTEIN,URINE NEGATIVE (NEG-TRACE); UROBILINOGEN,URINE 0.2 mg/dL (0.2 mg/dL)
[2021-08-09 22:59] LABS: BACTERIA,URINE 0 /HPF (0-FEW); RBC,URINE OCC /HPF (0-2); WBC,URINE OCC /HPF (0-4)
[2021-08-10 02:26] VITALS: BP 144/68
[2021-08-10] MEDS: LEVOTHYROXINE 50 MCG TABLET PO SCH (06:31)
[2021-08-10] MEDS: IV DEXTROSE 5 %-0.45 % NACL 1,000 ML IV SCH ×2 (06:31→22:39)
[2021-08-10] MEDS: PANTOPRAZOLE 40 MG TABLET.DR. PO SCH (06:32)
[2021-08-10 07:28] VITALS: BP 167/75
--- NOTE | 2021-08-10 08:48 | DISCH ---
DISCHARGE INSTRUCTIONS Condition on Discharge Condition on Discharge: Stable Activity After Discharge Activity Instructions for Disc: Activity as tolerated Exercise Instruction after Dis: Walk 30 min, 5 x per week Driving Instructions after Dis: Do not drive today Diet after Discharge Diet after Discharge: Cardiac Follow-Up Follow up with: PCP within 2 weeks of discharge [facility] JANES ANG MD Aug 10, 2021 08:48
[2021-08-10] MEDS: hydroCHLOROthiazide 25 MG TABLET PO SCH (08:58)
[2021-08-10] MEDS: METOPROLOL SUCC 24HR ER 25 MG TAB.ER.24H. PO SCH (08:58)
[2021-08-10] MEDS: ISOSORBIDE MONONITRATE ER 30 MG TAB.ER.24H PO SCH (08:58)
[2021-08-10] MEDS: ASPIRIN ENTERIC COATED 81 MG TABLET.DR. PO SCH (08:58)
[2021-08-10] MEDS: ONDANSETRON PF 4 MG/2 ML VIAL. IVP PRN (08:59)
[2021-08-10] MEDS: traMADol 50 MG TABLET PO PRN ×2 (09:09→22:42)
[2021-08-10 10:13] LABS: BASO # 0.1 x10^3/uL (0.0-0.2); BASO % 1 % (0-3); EOS # 0.2 x10^3/uL (0.0-0.7); EOS % 2 % (0-3); HEMATOCRIT 50.1 % (36.0-47.0); HEMOGLOBIN 16.5 g/dL (12.0-15.5); LYMPH # 1.6 x10^3/uL (1.0-4.8); LYMPH % 19 % (24-48); MEAN CORPUSCULAR HEMOGLOBIN 31 pg (25-35); MEAN CORPUSCULAR HGB CONC 33 g/dL (31-37); MEAN CORPUSCULAR VOLUME 93 fL (79-100); MONO % 12 % (0-9); NEUT # 5.4 x10^3/uL (1.8-7.7); NEUT % 66 % (31-73); PLATELET COUNT 191 x10^3/uL (140-400); RED BLOOD COUNT 5.38 x10^6/uL (3.50-5.40); RED CELL DISTRIBUTION WIDTH 14.7 % (11.5-14.5); WHITE BLOOD COUNT 8.2 x10^3/uL (4.0-11.0)
[2021-08-10 10:23] LABS: CALCIUM 9.2 mg/dL (8.5-10.1); CREATININE 0.8 mg/dL (0.6-1.0); GFR 68.8; MAGNESIUM 1.8 mg/dL (1.8-2.4); POTASSIUM 3.5 mmol/L (3.5-5.1)
[2021-08-10 10:40] VITALS: BP 141/65
--- NOTE | 2021-08-10 11:00 | SNU/HH DC ---
DISCHARGE ORDERS DISCHARGE INFORMATION: DISCHARGE DATE: Aug 10, 2021 CONDITION ON DISCHARGE: Stable CODE STATUS: Code Status: Full LONG TERM: SNF STAY <30 DAYS: Yes POST DISCHARGE ORDERS: ACTIVITY ORDERS: Activity as tolerated FOLLOW-UP: PHYSICIAN FOLLOW-UP: PCP within 2 weeks of discharge ADDITIONAL FOLLOW-UP: [facility] if desired TREATMENT/EQUIPMENT ORDERS: Physical Therapy For: Evalulation/Treatment Occupational Therapy For: Evaluation/Treatment DISCHARGE MEDICATIONS: Home Meds Active Scripts Metoclopramide Hcl (REGLAN) 5 Mg Tablet, 5 MG PO BIDAC PRN for NAUSEA/VOMITING, #60 TAB 3 Refills Prov:JANES ANG MD 08/13/21 Amlodipine Besylate (AMLODIPINE BESYLATE) 10 Mg Tablet, 10 MG PO QHS for blood pressure for 30 Days, #30 TAB 3 Refills Prov:JANES ANG MD 08/13/21 Reported Medications Hydrochlorothiazide (HYDROCHLOROTHIAZIDE TABLET ) 25 Mg Tablet, 25 MG PO DAILY for DIURETIC, TAB 0 Refills 08/06/21 Aspirin (ASPIRIN EC) 81 Mg Tablet.dr, 81 MG PO DAILY for , TAB.SR 08/06/21 [iron] No Conflict Check, 65 MG PO DAILY 08/06/21 Alprazolam (XANAX) 0.25 Mg Tablet, 0.25 MG PO PRN Q12HR PRN for ANXIETY / AGITATION, TAB 0 Refills 08/06/21 Omeprazole Magnesium (PRILOSEC OTC) 20 Mg Tablet.dr, 20 MG PO DAILY for , TAB 08/06/21 Rosuvastatin Calcium (CRESTOR) 40 Mg Tablet, 20 MG PO HS for FOR CHOLESTEROL, #30 TAB 0 Refills 08/06/21 Isosorbide Mononitrate (ISOSORBIDE MONONITRATE ER) 30 Mg Tab.er.24h, 30 MG PO DAILY for , TAB.SR 08/06/21 Levothyroxine Sodium (SYNTHROID) 50 Mcg Tablet, 50 MCG PO DAILYAC for THYROID SUPPLEMENT, #30 TAB 0 Refills 08/06/21 Lisinopril (LISINOPRIL) 40 Mg Tablet, 40 MG PO QHS for FOR HYPERTENSION, #30 TAB 0 Refills 08/06/21 Metoprolol Succinate (TOPROL XL) 25 Mg Tab.er.24h, 25 MG PO DAILY for FOR HYPERT ENSION, #30 TAB 0 Refills 08/06/21 JANES ANG MD Aug 10, 2021 11:00
--- NOTE | 2021-08-10 11:28 | SNU/HH DC ---
DISCHARGE WITH HOME HEALTH DISCHARGE INFORMATION: Discharge Date: Aug 10, 2021 Condition on Discharge: Stable CODE STATUS: Code Status: Full HOME HEALTH: Face to Face: I certify this patient is under my care and that I, or a nurse practitioner or [employer] assistant working with me, had a face to face encounter that meets the physician face to face encounter requirements with this patient on []. RN For Eval/Treatment: Yes Physical Therapy For: Evalulation/Treatment Occupational Therapy For: Evaluation/Treatment Home Health Aide For: Self-care Pt Meets Homebound Status: Limited distance walking, Poor cognition, Unable to negotiate home POST DISCHARGE ORDERS: Activity Instructions for Disc: Activity as tolerated FOLLOW-UP: Follow up with: PCP within 2 weeks of discharge Follow Up With: [facility] if desired CERTIFICATION STATEMENT: Certification Statement: Certification Statement: Based on the above finding, I certify that this patient is confined to the home and needs intermittent halfway care, physical therapy and/or speech therapy, or continues to need occupational therapy.~ This patient is under my care, and I have initiated the establishment of the plan of care.~ This patient will be followed by myself or a community physician who will periodically review the plan of care. Home Meds Reported Medications Hydrochlorothiazide (HYDROCHLOROTHIAZIDE TABLET ) 25 Mg Tablet, 25 MG PO DAILY for DIURETIC, TAB 0 Refills 08/06/21 Aspirin (ASPIRIN EC) 81 Mg Tablet.dr, 81 MG PO DAILY for , TAB.SR 08/06/21 [iron] No Conflict Check, 65 MG PO DAILY 08/06/21 Alprazolam (XANAX) 0.25 Mg Tablet, 0.25 MG PO PRN Q12HR PRN for ANXIETY / AGITATION, TAB 0 Refills 08/06/21 Omeprazole Magnesium (PRILOSEC OTC) 20 Mg Tablet.dr, 20 MG PO DAILY for , TAB 08/06/21 Rosuvastatin Calcium (CRESTOR) 40 Mg Tablet, 20 MG PO HS for FOR CHOLESTEROL, #30 TAB 0 Refills 08/06/21 Isosorbide Mononitrate (ISOSORBIDE MONONITRATE ER) 30 Mg Tab.er.24h, 30 MG PO DAILY for , TAB.SR 08/06/21 Levothyroxine Sodium (SYNTHROID) 50 Mcg Tablet, 50 MCG PO DAILYAC for THYROID SUPPLEMENT, #30 TAB 0 Refills 08/06/21 Lisinopril (LISINOPRIL) 40 Mg Tablet, 40 MG PO QHS for FOR HYPERTENSION, #30 TAB 0 Refills 08/06/21 Metoprolol Succinate (TOPROL XL) 25 Mg Tab.er.24h, 25 MG PO DAILY for FOR HYPERTENSION, #30 TAB 0 Refills 08/06/21 JANES ANG MD Aug 10, 2021 11:28
--- NOTE | 2021-08-10 11:41 | PDOC ---
Date of Service: DATE: 08/10/21 TIME: 11:35 Subjective: Subjective: Ordered chicken noodle soup, cottage cheese, fruit, and Sprite (NOT Sheron Mist because she doesn't like that) from kitchen. Reports nausea w/o abd pain or vomiting this morning. Occasionally dizzy. Asks me if I've ever been to a certain restaurant but she can't think of the name. Says no meds really ever help her nausea, does recall that Tramadol helps headaches. Objective: Objective: D/w nurse - c/o nausea this morning, ate yogurt after Zofran. Possible DC to SNU? Pt doesn't seem interested in leaving, mentioned she liked being around the people here. 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 and noted no significant lesions." Vital Signs: Vital Signs Date Time Temp Pulse Resp B/P (MAP) Pulse Ox O2 Delivery O2 Flow Rate FiO2 08/10/21 10:40 98.7 73 18 141/65 (90) 96 Room Air 98.7 Labs: Laboratory Tests Test 08/09/21 22:22 08/10/21 09:51 08/10/21 09:53 Urine Collection Type Unknown Urine Color Yellow Urine Clarity Clear Urine pH 6.0 Urine Specific [place] 1.010 Urine Protein Negative mg/dL Urine Glucose (UA) Negative mg/dL Urine Ketones (Stick) Negative mg/dL Urine Blood Negative Urine Nitrite Negative Urine Bilirubin Negative Urine Urobilinogen Dipstick 0.2 mg/dL Urine Leukocyte Esterase Negative Urine RBC Occ /HPF Urine WBC Occ /HPF Urine Squamous Epithelial Cells Many /LPF Urine Bacteria 0 /HPF Urine Mucus Slight /LPF White Blood Count 8.2 x10^3/uL Red Blood Count 5.38 x10^6/uL Hemoglobin 16.5 g/dL Hematocrit 50.1 % Mean Corpuscular Volume 93 fL Mean Corpuscular Hemoglobin 31 pg Mean Corpuscular Hemoglobin Concent 33 g/dL Red Cell Distribution Width 14.7 % Platelet Count 191 x10^3/uL Neutrophils (%) (Auto) 66 % Lymphocytes (%) (Auto) 19 % Monocytes (%) (Auto) 12 % Eosinophils (%) (Auto) 2 % Basophils (%) (Auto) 1 % Neutrophils # (Auto) 5.4 x10^3/uL Lymphocytes # (Auto) 1.6 x10^3/uL Monocytes # (Auto) 1.0 x10^3/uL Eosinophils # (Auto) 0.2 x10^3/uL Basophils # (Auto) 0.1 x10^3/uL Sodium Level 138 mmol/L Potassium Level 3.5 mmol/L Chloride Level 101 mmol/L Carbon Dioxide Level 28 mmol/L Anion Gap 9 Blood Urea Nitrogen 14 mg/dL Creatinine 0.8 mg/dL Estimated GFR (Cockcroft-Gault) 68.8 Glucose Level 120 mg/dL Calcium Level 9.2 mg/dL Magnesium Level 1.8 mg/dL Imaging: Brain MRI IMPRESSION: 1. No acute intracranial finding. 2. Scattered focal areas of signal change within the cerebral white matter, most commonly due to chronic small vessel disease in patients of this age. 3. Mild age-appropriate cerebral volume loss. PE: GEN: NAD LUNGS: CTAB HEART: RRR ABD: NABS, S/ND/NT NEURO/PSYCH: forgetful, pleasant - spends a lot of time on the phone talking over her meal options w/ the kitchen A/P: Encephalopathy (?dementia), HTN Chronic n/v, s/p gastric sleeve - recently had second opinion at , reports h/o gastroparesis w/ normal GES most recently -- Eating a little, no vomiting. Seems comfortable and happy here. DC per primary. ?consider re-trying e-mycin or Reglan? Justicifation of Admission Dx: Justifications for Admission: Justification of Admission Dx: Yes PERICO PICKARD Aug 10, 2021 11:41
--- NOTE | 2021-08-10 11:45 | PDOC ---
PROGRESS NOTES Date of Service DATE: 08/10/21 TIME: 11:42 Subjective Subjective She c/o dizziness and nausea this AM. Objective Objective Vital Signs Date Time Temp Pulse Resp B/P (MAP) Pulse Ox O2 Delivery O2 Flow Rate FiO2 08/10/21 10:40 98.7 73 18 141/65 (90) 96 Room Air 98.7 Intake and Output 08/10/21 07:00 Intake Total 1106 ml Output Total 1100 ml Balance 6 ml Intake Oral 1106 ml Output Urine Total 1100 ml # Voids 2 Physical Exam Physical Exam She is supine in bed and alert and she got up [facility] physical and occupational therapy and they both recommended her to got to SNF. Plan Plan of Care To SNF or home with home health follow p when medically stable. Comment Review of Relevant I have reviewed the following items andrew (where applicable) has been applied. Labs Laboratory Tests Test 08/09/21 11:25 08/09/21 22:22 08/10/21 09:51 08/10/21 09:53 White Blood Count 8.6 x10^3/uL (4.0-11.0) 8.2 x10^3/uL (4.0-11.0) Red Blood Count 5.19 x10^6/uL (3.50-5.40) 5.38 x10^6/uL (3.50-5.40) Hemoglobin 16.1 g/dL (12.0-15.5) 16.5 g/dL (12.0-15.5) Hematocrit 48.3 % (36.0-47.0) 50.1 % (36.0-47.0) Mean Corpuscular Volume 93 fL (79-100) 93 fL (79-100) Mean Corpuscular Hemoglobin 31 pg (25-35) 31 pg (25-35) Mean Corpuscular Hemoglobin Concent 33 g/dL (31-37) 33 g/dL (31-37) Red Cell Distribution Width 15.4 % (11.5-14.5) 14.7 % (11.5-14.5) Platelet Count 199 x10^3/uL (140-400) 191 x10^3/uL (140-400) Neutrophils (%) (Auto) 58 % (31-73) 66 % (31-73) Lymphocytes (%) (Auto) 25 % (24-48) 19 % (24-48) Monocytes (%) (Auto) 13 % (0-9) 12 % (0-9) Eosinophils (%) (Auto) 3 % (0-3) 2 % (0-3) Basophils (%) (Auto) 1 % (0-3) 1 % (0-3) Neutrophils # (Auto) 5.0 x10^3/uL (1.8-7.7) 5.4 x10^3/uL (1.8-7.7) Lymphocytes # (Auto) 2.1 x10^3/uL (1.0-4.8) 1.6 x10^3/uL (1.0-4.8) Monocytes # (Auto) 1.1 x10^3/uL (0.0-1.1) 1.0 x10^3/uL (0.0-1.1) Eosinophils # (Auto) 0.2 x10^3/uL (0.0-0.7) 0.2 x10^3/uL (0.0-0.7) Basophils # (Auto) 0.1 x10^3/uL (0.0-0.2) 0.1 x10^3/uL (0.0-0.2) Platelet Estimate Adequate (ADEQUATE) Large Platelets Few Sodium Level 141 mmol/L (136-145) 138 mmol/L (136-145) Potassium Level 4.0 mmol/L (3.5-5.1) 3.5 mmol/L (3.5-5.1) Chloride Level 102 mmol/L (98-107) 101 mmol/L (98-107) Carbon Dioxide Level 27 mmol/L (21-32) 28 mmol/L (21-32) Anion Gap 12 (6-14) 9 (6-14) Blood Urea Nitrogen 19 mg/dL (7-20) 14 mg/dL (7-20) Creatinine 0.9 mg/dL (0.6-1.0) 0.8 mg/dL (0.6-1.0) Estimated GFR (Cockcroft-Gault) 60.1 68.8 Glucose Level 128 mg/dL (70-99) 120 mg/dL (70-99) Calcium Level 9.5 mg/dL (8.5-10.1) 9.2 mg/dL (8.5-10.1) Magnesium Level 2.2 mg/dL (1.8-2.4) 1.8 mg/dL (1.8-2.4) Urine Collection Type Unknown Urine Color Yellow Urine Clarity Clear Urine pH 6.0 (<5.0-8.0) Urine Specific [place] 1.010 (1.000-1.030) Urine Protein Negative mg/dL (NEG-TRACE) Urine Glucose (UA) Negative mg/dL (NEG) Urine Ketones (Stick) Negative mg/dL (NEG) Urine Blood Negative (NEG) Urine Nitrite Negative (NEG) Urine Bilirubin Negative (NEG) Urine Urobilinogen Dipstick 0.2 mg/dL (0.2 mg/dL) Urine Leukocyte Esterase Negative (NEG) Urine RBC Occ /HPF (0-2) Urine WBC Occ /HPF (0-4) Urine Squamous Epithelial Cells Many /LPF Urine Bacteria 0 /HPF (0-FEW) Urine Mucus Slight /LPF Laboratory Tests Test 08/09/21 22:22 08/10/21 09:51 08/10/21 09:53 Urine Collection Type Unknown Urine Color Yellow Urine Clarity Clear Urine pH 6.0 (<5.0-8.0) Urine Specific [place] 1.010 (1.000-1.030) Urine Protein Negative mg/dL (NEG-TRACE) Urine Glucose (UA) Negative mg/dL (NEG) Urine Ketones (Stick) Negative mg/dL (NEG) Urine Blood Negative (NEG) Urine Nitrite Negative (NEG) Urine Bilirubin Negative (NEG) Urine Urobilinogen Dipstick 0.2 mg/dL (0.2 mg/dL) Urine Leukocyte Esterase Negative (NEG) Urine RBC Occ /HPF (0-2) Urine WBC Occ /HPF (0-4) Urine Squamous Epithelial Cells Many /LPF Urine Bacteria 0 /HPF (0-FEW) Urine Mucus Slight /LPF White Blood Count 8.2 x10^3/uL (4.0-11.0) Red Blood Count 5.38 x10^6/uL (3.50-5.40) Hemoglobin 16.5 g/dL (12.0-15.5) Hematocrit 50.1 % (36.0-47.0) Mean Corpuscular Volume 93 fL (79-100) Mean Corpuscular Hemoglobin 31 pg (25-35) Mean Corpuscular Hemoglobin Concent 33 g/dL (31-37) Red Cell Distribution Width 14.7 % (11.5-14.5) Platelet Count 191 x10^3/uL (140-400) Neutrophils (%) (Auto) 66 % (31-73) Lymphocytes (%) (Auto) 19 % (24-48) Monocytes (%) (Auto) 12 % (0-9) Eosinophils (%) (Auto) 2 % (0-3) Basophils (%) (Auto) 1 % (0-3) Neutrophils # (Auto) 5.4 x10^3/uL (1.8-7.7) Lymphocytes # (Auto) 1.6 x10^3/uL (1.0-4.8) Monocytes # (Auto) 1.0 x10^3/uL (0.0-1.1) Eosinophils # (Auto) 0.2 x10^3/uL (0.0-0.7) Basophils # (Auto) 0.1 x10^3/uL (0.0-0.2) Sodium Level 138 mmol/L (136-145) Potassium Level 3.5 mmol/L (3.5-5.1) Chloride Level 101 mmol/L (98-107) Carbon Dioxide Level 28 mmol/L (21-32) Anion Gap 9 (6-14) Blood Urea Nitrogen 14 mg/dL (7-20) Creatinine 0.8 mg/dL (0.6-1.0) Estimated GFR (Cockcroft-Gault) 68.8 Glucose Level 120 mg/dL (70-99) Calcium Level 9.2 mg/dL (8.5-10.1) Magnesium Level 1.8 mg/dL (1.8-2.4) Medications Current Medications Aspirin (Ecotrin) 81 mg DAILY PO Last administered on 08/10/21at 08:58; Start 08/06/21 at 09:00 Hydrochlorothiazide (Hydrodiuril) 25 mg DAILY PO Last administered on 08/10/21at 08:58; Start 08/06/21 at 09:00 Isosorbide Mononitrate (Imdur) 30 mg DAILY PO Last administered on 08/10/21at 08:58; Start 08/06/21 at 09:00 Levothyroxine Sodium (Synthroid) 50 mcg DAILY06 PO Last administered on 08/10/21 06:31; Start 08/06/21 at 06:00 Lisinopril (Prinivil) 40 mg QHS PO Last administered on 08/09/21 21:07; Start 08/06/21 at 21:00 Metoprolol Succinate (Toprol Xl) 25 mg DAILY PO Last administered on 08/10/21 08:58; Start 08/06/21 at 09:00 Pantoprazole Sodium (Protonix) 40 mg DAILYAC PO Last administered on 08/10/21 06:32; Start 08/06/21 at 07:30 Atorvastatin Calcium (Lipitor) 80 mg QHS PO Last administered on 08/09/21 21:06; Start 08/06/21 at 21:00 Acetaminophen (Tylenol) 650 mg PRN Q6HRS PRN PO MILD PAIN / TEMP > 100.3'F Last administered on 08/08/21 00:02; Start 08/06/21 at 03:45 Ondansetron HCl (Zofran) 4 mg PRN Q6HRS PRN IVP NAUSEA/VOMITING 1ST CHOICE Last administered on 08/10/21 08:59; Start 08/06/21 at 03:45 Labetalol HCl (Normodyne Iv Push) 20 mg PRN Q2HR PRN IVP HYPERTENSION (2ND CHOICE) Last administered on 08/06/21 08:28; Start 08/06/21 at 03:45 Lisinopril (Prinivil) 20 mg DAILY PO ; Start 08/06/21 at 14:30; Status UNV Hydralazine HCl (Apresoline Inj) 10 mg PRN Q4HRS PRN IVP ELEVATED BP, SEE COMMENTS Last administered on 08/06/21at 14:38; Start 08/06/21 at 14:30 Amlodipine Besylate (Norvasc) 10 mg DAILY PO Last administered on 08/10/21 08:59; Start 08/06/21 at 14:30 Potassium Chloride (Klor-Con) 40 meq Q4HRS PO Last administered on 08/07/21at 15:55; Start 08/07/21 at 12:00; Stop 08/07/21 at 16:01; Status DC Potassium Chloride (Klor-Con) 40 meq BID PO Last administered on 08/08/21at 09:01; Start 08/07/21 at 21:00; Stop 08/08/21 at 20:59; Status DC Potassium Chloride (Klor-Con) 40 meq 1X ONCE PO ; Start 08/07/21 at 13:00; Stop 08/07/21 at 13:01; Status Cancel Sodium Chloride 250 ml @ 250 mls/hr Q1H IV Last administered on 08/08/21at 08:51; Start 08/08/21 at 08:15; Stop 08/09/21 at 11:59; Status DC Dextrose/Sodium Chloride 1,000 ml @ 75 mls/hr [id number] IV Last administered on 08/10/21at 06:31; Start 08/08/21 at 12:00 Magnesium Sulfate 50 ml @ 25 mls/hr 1X ONCE IV Last administered on 08/08/21at 12:59; Start 08/08/21 at 13:00; Stop 08/08/21 at 14:59; Status DC Tramadol HCl (Ultram) 50 mg PRN Q8HRS PRN PO MODERATE-SEVERE PAIN Last administered on 08/10/21at 09:09; Start 08/08/21 at 16:15 Active Scripts Active Reported Hydrochlorothiazide Tablet (Hydrochlorothiazide) 25 Mg Tablet 25 Mg PO DAILY Aspirin Ec (Aspirin) 81 Mg Tablet.dr 81 Mg PO DAILY [iron] 65 Mg PO DAILY Xanax (Alprazolam) 0.25 Mg Tablet 0.25 Mg PO PRN Q12HR PRN Prilosec Otc (Omeprazole Magnesium) 20 Mg Tablet.dr 20 Mg PO DAILY Crestor (Rosuvastatin Calcium) 40 Mg Tablet 20 Mg PO HS Isosorbide Mononitrate Er (Isosorbide Mononitrate) 30 Mg Tab.er.24h 30 Mg PO DAILY Synthroid (Levothyroxine Sodium) 50 Mcg Tablet 50 Mcg PO DAILYAC Lisinopril 40 Mg Tablet 40 Mg PO QHS Toprol Xl (Metoprolol Succinate) 25 Mg Tab.er.24h 25 Mg PO DAILY Vitals/I & O Vital Sign - Last 24 Hours 08/09/21 08/09/21 08/09/21 08/09/21 15:00 19:32 20:05 21:07 Temp 98.4 98.6 98.4 98.6 Pulse 57 59 59 Resp 22 18 B/P (MAP) 157/65 (95) 135/63 (87) 135/63 Pulse Ox 97 95 O2 Delivery Room Air Room Air Room Air 08/09/21 08/09/21 08/09/21 08/10/21 21:08 21:58 22:09 02:26 Temp 97.9 98.0 97.9 98.0 Pulse 60 71 Resp 16 16 B/P (MAP) 136/62 (86) 144/68 (93) Pulse Ox 94 95 O2 Delivery Room Air Room Air Room Air Room Air 08/10/21 08/10/21 08/10/21 08/10/21 07:28 08:00 08:58 08:58 Temp 98.1 98.1 Pulse 72 72 72 Resp 18 B/P (MAP) 167/75 (105) 167/75 167/75 Pulse Ox 97 O2 Delivery Room Air Room Air 08/10/21 08/10/21 08/10/21 08:59 09:09 10:40 Temp 98.7 98.7 Pulse 72 73 Resp 18 B/P (MAP) 167/75 141/65 (90) Pulse Ox 96 O2 Delivery Room Air Room Air Intake and Output 08/09/21 08/09/21 08/10/21 15:00 23:00 07:00 Intake Total 636 ml 420 ml 50 ml Output Total 200 ml 900 ml Balance 636 ml 220 ml -850 ml Justifications for Admission Other Justification OLEKSANDR BELL MD Aug 10, 2021 11:45
--- NOTE | 2021-08-10 11:52 | NUR ---
SS following up with discharge planning. SS reviewed pt chart and discussed with pt RN. Pt is currently on room air. COVID19 negative at [facility]. PT/OT recommended [facility] unit. Pt's son contacted SS this morning and stated that family has changed there minds and would like pt to go to ch[facility] unit. Pt's family requesting referrals to [facility], ; fax [phone], and [facility] in [place], [place], ; fax [phone]. Discharge orders received for [facility] unit. Referrals phoned and faxed referrals as requested. Currently awaiting acceptance decisions. SS will continue to follow for discharge planning. Addendum: 08/10/21 at 1634 by PUJA MENDES [facility] contacted SS expressing concerns about pt's confusion and requesting updated notes on Friday. [facility] contacted SS and reported that they have a bd available but it is a shared room. SS discussed with pt's family and pt's family declined. Pt's family requested referral to [facility], ; fax [phone]. SS phoned and faxed referral as requested.
[2021-08-10] MEDS ORDERED: AMLO-187 PO (13:56)
[2021-08-10 15:47] VITALS: BP 129/61
[2021-08-10 19:15] VITALS: BP 136/79
[2021-08-10 22:01] VITALS: BP 154/72
[2021-08-10] MEDS: ATORVASTATIN CALCIUM 40 MG TABLET. PO SCH (22:40)
[2021-08-10] MEDS: LISINOPRIL 20 MG TABLET PO SCH (22:40)
[2021-08-11 02:00] VITALS: BP 129/60
[2021-08-11] MEDS: PANTOPRAZOLE 40 MG TABLET.DR. PO SCH (06:38)
[2021-08-11] MEDS: LEVOTHYROXINE 50 MCG TABLET PO SCH (06:38)
[2021-08-11] MEDS: IV DEXTROSE 5 %-0.45 % NACL 1,000 ML IV SCH ×2 (06:39→20:00)
[2021-08-11 07:00] VITALS: BP 134/61
[2021-08-11] MEDS: ASPIRIN ENTERIC COATED 81 MG TABLET.DR. PO SCH (08:19)
[2021-08-11] MEDS: hydroCHLOROthiazide 25 MG TABLET PO SCH (08:20)
[2021-08-11] MEDS: ISOSORBIDE MONONITRATE ER 30 MG TAB.ER.24H PO SCH (08:20)
[2021-08-11] MEDS: ONDANSETRON PF 4 MG/2 ML VIAL. IVP PRN (08:21)
[2021-08-11] MEDS: METOPROLOL SUCC 24HR ER 25 MG TAB.ER.24H. PO SCH (08:21)
--- NOTE | 2021-08-11 09:35 | PDOC ---
[facility] [facility] PROGRESS NOTE Date of Service DOS: DATE: 08/10/21 TIME: 09:34 Chief Complaint Chief Complaint Assessment/Plan Problem List: Acute encephalopathy Acute metabolic encephalopathy Acute electrolyte derangementhypernatremia suggestive of dehydration. Erythrocytosis suggestive of dehydration Hypertensive urgency JACKELINE due to vasomotor nephropathy ATN Dementia Hx of GERD Hx of HTN Hx of gastroparesis Hx of gastric sleeve Hx of hypothyroidism Hx of migraines Cardiology consulted for CAD work-up. Pending echo Pending brain MRI No obvious centrally acting medications currently. No obvious signs of infection on physical exam. No fevers or nuchal rigidity. CT head is negative for acute etiology. No history or signs of trauma Pending FeNa calculation for volume depletion Pending TSH, B12, folate levels Pending urine toxic drug screen Consider dementia prevention protocol Provide adequate lighting (open curtains during the day, turn the lights off at night) Provide frequent personal contact with family, friends, and staff or TV Encourage early and frequent mobilization Rehab screening ordered IV Haldol as needed for agitation, consider sitter as needed if non-redirectable agitation Avoid physical restraints, catheters or tubes, and benzodiazepines Nutrition consult if there is malnutrition or concern for vitamin deficiencies Continue IV fluids GI consult for gastroparesis Lovenox for DVT prophylaxis Protonix GI prophylaxis ADA diet Full code Discussed with RN and SW Dispo inpatient management as above History of Present Illness History of Present Illness 80-year-old female with past medical history of hypothyroidism, gastroparesis, hypertension who comes in with altered mental status. Family states that patient has been acting confused for 5 days and the patient also has been complaining of fatigue, nausea or vomiting. Patient was transferred from [facility] ER for evaluation with neurology and possible MRI of the brain to rule out stroke. Patient currently is AAO x4 but currently has bouts of confusion and forgetfulness and she tends to repeat herself during conversation. Denies any falls or obvious trauma. UA is negative for any signs of infection. Normal saline bolus was given at [facility] for possible dehydration. Per GI: She saw Dr. Weiss in clinic in 03/2021 for nausea. Notes indicate Reglan, Zofran, and e-mycin were unhelpful and cardiac stress test and echo were unrevealing. Recommendation made for cardiac cath prior to second GI opinion at . Reviewed notes from encounter w/ Dr. Ramirez at on . She reported spells of nausea for 3-4 days along w/ decreased appetite and early satiety. Previous GES @ [facility] showed 40% retention @ 4 hours per patient. Also c/o constipation (3-4 stools weekly). Recommendation to check cortisol and GES and to try Compazine 10mg TID PRN w/ possible plans to try Relgn if GES is abnormal. Records of suggested testing unavailable for review. The patient reports GES at was normal and that she stopped e-mycin and did well for a month. Records indicate that she's had multiple EGDs. S/p gastric sleeve. Normal colonoscopy in 2019. S/p cholecystectomy. Takes ASA QHS and Advil PRN for headaches which occur when she doesn't eat. Says she was compliant w/ medications (specifically HTN meds) at home and says she takes Prilosec and iron QD. 08/07/2021 No acute events overnight. Patient seen examined bedside. Does not like the food in the hospital. Denies any vomiting. Pleasantly confused and forgetful. Potassium of 2.9 will replace with IV NPO potassium chloride. 08/08/2021 No acute events or night. Patient seen examined bedside. Cardiac work-up essentially negative for ACS. I have recommended for the patient to consider going to [facility] for continued investigation for her gastroparesis. Patient Carmen tolerate some toast and broth. She has nausea with other foods. Patient still has some polycythemia which I think is related to her dehydration. I have started her D5 half NS at 75 cc/h and bolus her 250 half NS. We will have Dr. Garay she has had injections in her back in the past. Evaluate for back pain. Patient's chart, labs, images were reviewed and discussed with RN 08/09/2021 No acute events overnight. Patient seen examined bedside. All work-up is negative and all her review of her records have shown no reason for her gastroparesis. I will keep her on fluids today as she is still not eating very much. She is only able to tolerate some broth and toast. She is sitting on the commode several times last night and this morning and the nurse believes that she might have some urinary retention. UA is collected for possible UTI. CBC still shows hemoglobin of 16.1. I will continue her maintenance fluid today and continue to observe. Possible discharge tomorrow with her friend Radha who is also a nurse. Heavy snow today which presents transportation issues for many patients here today. Patient's chart, labs, images were reviewed and discussed with RN 08/10/2021 No acute events overnight. AF and VSS. Pending SNF placement. Vitals/I&O Vitals/I&O: Vital Signs Date Time Temp Pulse Resp B/P (MAP) Pulse Ox O2 Delivery O2 Flow Rate FiO2 08/11/21 08:21 69 134/61 08/11/21 08:00 Room Air 08/11/21 07:00 98.8 16 96 98.8 I & O 08/10/21 08/10/21 08/11/21 15:00 23:00 07:00 Intake Total 280 ml Output Total 350 ml 400 ml Balance 280 ml -350 ml -400 ml Physical Exam General: Alert, Oriented X3, Cooperative, No acute distress Heart: Regular rate Abdomen: Soft, No tenderness Extremities: No clubbing, No edema, Normal pulses Skin: No rashes, No significant lesion Labs Labs: Laboratory Tests Test 08/10/21 09:51 08/10/21 09:53 White Blood Count 8.2 x10^3/uL (4.0-11.0) Red Blood Count 5.38 x10^6/uL (3.50-5.40) Hemoglobin 16.5 g/dL (12.0-15.5) Hematocrit 50.1 % (36.0-47.0) Mean Corpuscular Volume 93 fL (79-100) Mean Corpuscular Hemoglobin 31 pg (25-35) Mean Corpuscular Hemoglobin Concent 33 g/dL (31-37) Red Cell Distribution Width 14.7 % (11.5-14.5) Platelet Count 191 x10^3/uL (140-400) Neutrophils (%) (Auto) 66 % (31-73) Lymphocytes (%) (Auto) 19 % (24-48) Monocytes (%) (Auto) 12 % (0-9) Eosinophils (%) (Auto) 2 % (0-3) Basophils (%) (Auto) 1 % (0-3) Neutrophils # (Auto) 5.4 x10^3/uL (1.8-7.7) Lymphocytes # (Auto) 1.6 x10^3/uL (1.0-4.8) Monocytes # (Auto) 1.0 x10^3/uL (0.0-1.1) Eosinophils # (Auto) 0.2 x10^3/uL (0.0-0.7) Basophils # (Auto) 0.1 x10^3/uL (0.0-0.2) Sodium Level 138 mmol/L (136-145) Potassium Level 3.5 mmol/L (3.5-5.1) Chloride Level 101 mmol/L (98-107) Carbon Dioxide Level 28 mmol/L (21-32) Anion Gap 9 (6-14) Blood Urea Nitrogen 14 mg/dL (7-20) Creatinine 0.8 mg/dL (0.6-1.0) Estimated GFR (Cockcroft-Gault) 68.8 Glucose Level 120 mg/dL (70-99) Calcium Level 9.2 mg/dL (8.5-10.1) Magnesium Level 1.8 mg/dL (1.8-2.4) Comment Review of Relevant I have reviewed the following items andrew (where applicable) has been applied. Justifications for Admission Other Justification JANES ANG MD Aug 11, 2021 09:35
--- NOTE | 2021-08-11 10:55 | PDOC ---
PROGRESS NOTES Date of Service DATE: 08/11/21 TIME: 10:52 Subjective Subjective She admits continued nausea. Objective Objective Vital Signs Date Time Temp Pulse Resp B/P (MAP) Pulse Ox O2 Delivery O2 Flow Rate FiO2 08/11/21 08:21 69 134/61 08/11/21 08:00 Room Air 08/11/21 07:00 98.8 16 96 98.8 Intake and Output 08/11/21 07:00 Intake Total 280 ml Output Total 750 ml Balance -470 ml Intake Oral 280 ml Output Urine Total 750 ml # Voids 3 Physical Exam Physical Exam She is alert,supine in bed with head end propped up and not getting up much secondary to nausea. Plan Plan of Care To try compazine suppository to better control her nausea and try meclizine for dizziness. Agree with plans for SNF transfer when medically stable. Comment Review of Relevant I have reviewed the following items andrew (where applicable) has been applied. Labs Laboratory Tests Test 08/09/21 11:25 08/09/21 22:22 08/10/21 09:51 08/10/21 09:53 White Blood Count 8.6 x10^3/uL (4.0-11.0) 8.2 x10^3/uL (4.0-11.0) Red Blood Count 5.19 x10^6/uL (3.50-5.40) 5.38 x10^6/uL (3.50-5.40) Hemoglobin 16.1 g/dL (12.0-15.5) 16.5 g/dL (12.0-15.5) Hematocrit 48.3 % (36.0-47.0) 50.1 % (36.0-47.0) Mean Corpuscular Volume 93 fL (79-100) 93 fL (79-100) Mean Corpuscular Hemoglobin 31 pg (25-35) 31 pg (25-35) Mean Corpuscular Hemoglobin Concent 33 g/dL (31-37) 33 g/dL (31-37) Red Cell Distribution Width 15.4 % (11.5-14.5) 14.7 % (11.5-14.5) Platelet Count 199 x10^3/uL (140-400) 191 x10^3/uL (140-400) Neutrophils (%) (Auto) 58 % (31-73) 66 % (31-73) Lymphocytes (%) (Auto) 25 % (24-48) 19 % (24-48) Monocytes (%) (Auto) 13 % (0-9) 12 % (0-9) Eosinophils (%) (Auto) 3 % (0-3) 2 % (0-3) Basophils (%) (Auto) 1 % (0-3) 1 % (0-3) Neutrophils # (Auto) 5.0 x10^3/uL (1.8-7.7) 5.4 x10^3/uL (1.8-7.7) Lymphocytes # (Auto) 2.1 x10^3/uL (1.0-4.8) 1.6 x10^3/uL (1.0-4.8) Monocytes # (Auto) 1.1 x10^3/uL (0.0-1.1) 1.0 x10^3/uL (0.0-1.1) Eosinophils # (Auto) 0.2 x10^3/uL (0.0-0.7) 0.2 x10^3/uL (0.0-0.7) Basophils # (Auto) 0.1 x10^3/uL (0.0-0.2) 0.1 x10^3/uL (0.0-0.2) Platelet Estimate Adequate (ADEQUATE) Large Platelets Few Sodium Level 141 mmol/L (136-145) 138 mmol/L (136-145) Potassium Level 4.0 mmol/L (3.5-5.1) 3.5 mmol/L (3.5-5.1) Chloride Level 102 mmol/L (98-107) 101 mmol/L (98-107) Carbon Dioxide Level 27 mmol/L (21-32) 28 mmol/L (21-32) Anion Gap 12 (6-14) 9 (6-14) Blood Urea Nitrogen 19 mg/dL (7-20) 14 mg/dL (7-20) Creatinine 0.9 mg/dL (0.6-1.0) 0.8 mg/dL (0.6-1.0) Estimated GFR (Cockcroft-Gault) 60.1 68.8 Glucose Level 128 mg/dL (70-99) 120 mg/dL (70-99) Calcium Level 9.5 mg/dL (8.5-10.1) 9.2 mg/dL (8.5-10.1) Magnesium Level 2.2 mg/dL (1.8-2.4) 1.8 mg/dL (1.8-2.4) Urine Collection Type Unknown Urine Color Yellow Urine Clarity Clear Urine pH 6.0 (<5.0-8.0) Urine Specific Tillar 1.010 (1.000-1.030) Urine Protein Negative mg/dL (NEG-TRACE) Urine Glucose (UA) Negative mg/dL (NEG) Urine Ketones (Stick) Negative mg/dL (NEG) Urine Blood Negative (NEG) Urine Nitrite Negative (NEG) Urine Bilirubin Negative (NEG) Urine Urobilinogen Dipstick 0.2 mg/dL (0.2 mg/dL) Urine Leukocyte Esterase Negative (NEG) Urine RBC Occ /HPF (0-2) Urine WBC Occ /HPF (0-4) Urine Squamous Epithelial Cells Many /LPF Urine Bacteria 0 /HPF (0-FEW) Urine Mucus Slight /LPF Medications Current Medications Aspirin (Ecotrin) 81 mg DAILY PO Last administered on 08/11/21 08:19; Start 08/06/21 at 09:00 Hydrochlorothiazide (Hydrodiuril) 25 mg DAILY PO Last administered on 08/11/21 08:20; Start 08/06/21 at 09:00 Isosorbide Mononitrate (Imdur) 30 mg DAILY PO Last administered on 08/11/21at 08:20; Start 08/06/21 at 09:00 Levothyroxine Sodium (Synthroid) 50 mcg DAILY06 PO Last administered on 08/11/21 06:38; Start 08/06/21 at 06:00 Lisinopril (Prinivil) 40 mg QHS PO Last administered on 08/10/21 22:40; Start 08/06/21 at 21:00 Metoprolol Succinate (Toprol Xl) 25 mg DAILY PO Last administered on 08/11/21 08:21; Start 08/06/21 at 09:00 Pantoprazole Sodium (Protonix) 40 mg DAILYAC PO Last administered on 08/11/21at 06:38; Start 08/06/21 at 07:30 Atorvastatin Calcium (Lipitor) 80 mg QHS PO Last administered on 08/10/21at 22:40; Start 08/06/21 at 21:00 Acetaminophen (Tylenol) 650 mg PRN Q6HRS PRN PO MILD PAIN / TEMP > 100.3'F Last administered on 08/08/21at 00:02; Start 08/06/21 at 03:45 Ondansetron HCl (Zofran) 4 mg PRN Q6HRS PRN IVP NAUSEA/VOMITING 1ST CHOICE Last administered on 08/11/21at 08:21; Start 08/06/21 at 03:45 Labetalol HCl (Normodyne Iv Push) 20 mg PRN Q2HR PRN IVP HYPERTENSION (2ND CHOICE) Last administered on 08/06/21at 08:28; Start 08/06/21 at 03:45 Lisinopril (Prinivil) 20 mg DAILY PO ; Start 08/06/21 at 14:30; Status UNV Hydralazine HCl (Apresoline Inj) 10 mg PRN Q4HRS PRN IVP ELEVATED BP, SEE COMMENTS Last administered on 08/06/21at 14:38; Start 08/06/21 at 14:30 Amlodipine Besylate (Norvasc) 10 mg DAILY PO Last administered on 08/11/21at 08:20; Start 08/06/21 at 14:30 Potassium Chloride (Klor-Con) 40 meq Q4HRS PO Last administered on 08/07/21at 15:55; Start 08/07/21 at 12:00; Stop 08/07/21 at 16:01; Status DC Potassium Chloride (Klor-Con) 40 meq BID PO Last administered on 08/08/21at 09:01; Start 08/07/21 at 21:00; Stop 08/08/21 at 20:59; Status DC Potassium Chloride (Klor-Con) 40 meq 1X ONCE PO ; Start 08/07/21 at 13:00; Stop 08/07/21 at 13:01; Status Cancel Sodium Chloride 250 ml @ 250 mls/hr Q1H IV Last administered on 08/08/21at 08:51; Start 08/08/21 at 08:15; Stop 08/09/21 at 11:59; Status DC Dextrose/Sodium Chloride 1,000 ml @ 75 mls/hr [id number] IV Last administered on 08/11/21at 06:39; Start 08/08/21 at 12:00 Magnesium Sulfate 50 ml @ 25 mls/hr 1X ONCE IV Last administered on 08/08/21at 12:59; Start 08/08/21 at 13:00; Stop 08/08/21 at 14:59; Status DC Tramadol HCl (Ultram) 50 mg PRN Q8HRS PRN PO MODERATE-SEVERE PAIN Last administered on 08/10/21at 22:42; Start 08/08/21 at 16:15 Active Scripts Active Amlodipine Besylate 10 Mg Tablet 10 Mg PO DAILY 30 Days Reported Hydrochlorothiazide Tablet (Hydrochlorothiazide) 25 Mg Tablet 25 Mg PO DAILY Aspirin Ec (Aspirin) 81 Mg Tablet.dr 81 Mg PO DAILY [iron] 65 Mg PO DAILY Xanax (Alprazolam) 0.25 Mg Tablet 0.25 Mg PO PRN Q12HR PRN Prilosec Otc (Omeprazole Magnesium) 20 Mg Tablet.dr 20 Mg PO DAILY Crestor (Rosuvastatin Calcium) 40 Mg Tablet 20 Mg PO HS Isosorbide Mononitrate Er (Isosorbide Mononitrate) 30 Mg Tab.er.24h 30 Mg PO DAILY Synthroid (Levothyroxine Sodium) 50 Mcg Tablet 50 Mcg PO DAILYAC Lisinopril 40 Mg Tablet 40 Mg PO QHS Toprol Xl (Metoprolol Succinate) 25 Mg Tab.er.24h 25 Mg PO DAILY Vitals/I & O Vital Sign - Last 24 Hours 08/10/21 08/10/21 08/10/21 08/10/21 15:47 19:15 20:00 22:01 Temp 98.7 98.4 98.4 98.7 98.4 98.4 Pulse 63 74 65 Resp 18 18 B/P (MAP) 129/61 (83) 136/79 (98) 154/72 (99) Pulse Ox 94 98 93 O2 Delivery Room Air Room Air Room Air Room Air 08/10/21 08/10/21 08/11/21 08/11/21 22:40 22:42 02:00 07:00 Temp 97.7 98.8 97.7 98.8 Pulse 74 69 70 Resp 16 16 B/P (MAP) 136/79 129/60 (83) 134/61 (85) Pulse Ox 95 96 O2 Delivery Room Air Room Air Room Air 08/11/21 08/11/21 08/11/21 08/11/21 08:00 08:20 08:20 08:21 Pulse 69 69 69 B/P (MAP) 134/61 134/61 134/61 O2 Delivery Room Air Intake and Output 08/10/21 08/10/21 08/11/21 15:00 23:00 07:00 Intake Total 280 ml Output Total 350 ml 400 ml Balance 280 ml -350 ml -400 ml Justifications for Admission Other Justification OLEKSANDR BELL MD Aug 11, 2021 10:54
[2021-08-11 11:00] VITALS: BP 136/62
[2021-08-11] MEDS ORDERED: MECLIZINE HCL 12.5 MG TABLET. PO PRN (11:00)
[2021-08-11] MEDS: PROCHLORPERAZINE 25 MG SUPP.RECT. PR PRN (11:12)
--- NOTE | 2021-08-11 13:28 | PDOC ---
[employer] PROGRESS NOTE Date of Service DOS: DATE: 08/11/21 TIME: 13:27 Chief Complaint Chief Complaint Assessment/Plan Problem List: Acute encephalopathy Acute metabolic encephalopathy Acute electrolyte derangementhypernatremia suggestive of dehydration. Erythrocytosis suggestive of dehydration Hypertensive urgency JACKELINE due to vasomotor nephropathy ATN Dementia Hx of GERD Hx of HTN Hx of gastroparesis Hx of gastric sleeve Hx of hypothyroidism Hx of migraines Cardiology consulted for CAD work-up. Pending echo Pending brain MRI No obvious centrally acting medications currently. No obvious signs of infection on physical exam. No fevers or nuchal rigidity. CT head is negative for acute etiology. No history or signs of trauma Pending FeNa calculation for volume depletion Pending TSH, B12, folate levels Pending urine toxic drug screen Consider dementia prevention protocol Provide adequate lighting (open curtains during the day, turn the lights off at night) Provide frequent personal contact with family, friends, and staff or TV Encourage early and frequent mobilization Rehab screening ordered IV Haldol as needed for agitation, consider sitter as needed if non-redirectable agitation Avoid physical restraints, catheters or tubes, and benzodiazepines Nutrition consult if there is malnutrition or concern for vitamin deficiencies Continue IV fluids GI consult for gastroparesis Lovenox for DVT prophylaxis Protonix GI prophylaxis ADA diet Full code Discussed with RN and SW Dispo inpatient management as above History of Present Illness History of Present Illness 80-year-old female with past medical history of hypothyroidism, gastroparesis, hypertension who comes in with altered mental status. Family states that patient has been acting confused for 5 days and the patient also has been complaining of fatigue, nausea or vomiting. Patient was transferred from [facility] ER for evaluation with neurology and possible MRI of the brain to rule out stroke. Patient currently is AAO x4 but currently has bouts of confusion and forgetfulness and she tends to repeat herself during conversation. Denies any falls or obvious trauma. UA is negative for any signs of infection. Normal saline bolus was given at [facility] for possible dehydration. Per GI: She saw Dr. Weiss in clinic in 03/2021 for nausea. Notes indicate Reglan, Zofran, and e-mycin were unhelpful and cardiac stress test and echo were unrevealing. Recommendation made for cardiac cath prior to second GI opinion at . Reviewed notes from encounter w/ Dr. Ramirez at on . She reported spells of nausea for 3-4 days along w/ decreased appetite and early satiety. Previous GES @ [facility] showed 40% retention @ 4 hours per patient. Also c/o constipation (3-4 stools weekly). Recommendation to check cortisol and GES and to try Compazine 10mg TID PRN w/ possible plans to try Relgn if GES is abnormal. Records of suggested testing unavailable for review. The patient reports GES at was normal and that she stopped e-mycin and did well for a month. Records indicate that she's had multiple EGDs. S/p gastric sleeve. Normal colonoscopy in 2019. S/p cholecystectomy. Takes ASA QHS and Advil PRN for headaches which occur when she doesn't eat. Says she was compliant w/ medications (specifically HTN meds) at home and says she takes Prilosec and iron QD. 08/07/2021 No acute events overnight. Patient seen examined bedside. Does not like the food in the hospital. Denies any vomiting. Pleasantly confused and forgetful. Potassium of 2.9 will replace with IV NPO potassium chloride. 08/08/2021 No acute events or night. Patient seen examined bedside. Cardiac work-up essentially negative for ACS. I have recommended for the patient to consider going to [facility] for continued investigation for her gastroparesis. Patient Carmen tolerate some toast and broth. She has nausea with other foods. Patient still has some polycythemia which I think is related to her dehydration. I have started her D5 half NS at 75 cc/h and bolus her 250 half NS. We will have Dr. Garay she has had injections in her back in the past. Evaluate for back pain. Patient's chart, labs, images were reviewed and discussed with RN 08/09/2021 No acute events overnight. Patient seen examined bedside. All work-up is negative and all her review of her records have shown no reason for her gastroparesis. I will keep her on fluids today as she is still not eating very much. She is only able to tolerate some broth and toast. She is sitting on the commode several times last night and this morning and the nurse believes that she might have some urinary retention. UA is collected for possible UTI. CBC still shows hemoglobin of 16.1. I will continue her maintenance fluid today and continue to observe. Possible discharge tomorrow with her friend Radha who is also a nurse. Heavy snow today which presents transportation issues for many patients here today. Patient's chart, labs, images were reviewed and discussed with RN 08/10/2021 No acute events overnight. AF and VSS. Pending SNF placement. 08/11/2021 No acute events overnight patient seen examined bedside. Patient seen with breakfast tray and she is very picky with her meals. I instructed her to eat the carrots and she is able to swallow fine without any coughing spells. No nausea reported with carrots. Patient complained excessively with macaroni salad and she states that she never eats discounted stuff. Patient took a bite of macaroni salad but spotted out immediately. Patient's chart, labs, images were reviewed and discussed with RN Vitals/I&O Vitals/I&O: Vital Signs Date Time Temp Pulse Resp B/P (MAP) Pulse Ox O2 Delivery O2 Flow Rate FiO2 08/11/21 11:00 98.6 68 18 136/62 (86) 97 Room Air 98.6 I & O 08/10/21 08/10/21 08/11/21 15:00 23:00 07:00 Intake Total 280 ml Output Total 350 ml 400 ml Balance 280 ml -350 ml -400 ml Physical Exam General: Alert, Oriented X3, Cooperative, No acute distress Heart: Regular rate Abdomen: Soft, No tenderness Extremities: No clubbing, No edema, Normal pulses Skin: No rashes, No significant lesion Comment Review of Relevant I have reviewed the following items andrew (where applicable) has been applied. Medications: Current Medications Medications (Trade) Dose Ordered Sig/Esha Route PRN Reason Start Time Stop Time Status Last Admin Dose Admin Prochlorperazine (Compazine) 25 mg PRN Q12HR PRN [place] NAUSEA/VOMITING 08/11/21 11:00 08/11/21 11:12 Meclizine HCl (Antivert) 12.5 mg PRN Q6HRS PRN PO DIZZINESS 08/11/21 11:00 08/11/21 11:12 Justifications for Admission Other Justification JANES ANG MD Aug 11, 2021 13:28
[2021-08-11 15:00] VITALS: BP 115/59
[2021-08-11 19:58] VITALS: BP 132/60
[2021-08-11] MEDS: LISINOPRIL 20 MG TABLET PO SCH (20:04)
[2021-08-11] MEDS: ATORVASTATIN CALCIUM 40 MG TABLET. PO SCH (20:04)
[2021-08-11 22:49] VITALS: BP 159/72
[2021-08-12 02:28] VITALS: BP 176/79
--- NOTE | 2021-08-12 05:45 | RAD ---
PQRS Compliance Statement: One or more of the following individualized dose reduction techniques were utilized for this examinat ion: 1. Automated exposure control 2. Adjustment of the mA and/or kV according to patient size 3. Use of iterative reconstruction technique CT head without contrast 08/12/2021 5:19 AM INDICATION: Altered mental status COMPARISON: MRI brain 08/07/2021 TECHNIQUE: Multiple axial CT images of the head were obtained from skull base through the vertex with out intravenous contrast. FINDINGS: Head: Ventricles, sulci and basal cisterns are within normal limits. Low-attenuation in the periventricular white matter is suggestive of chronic small vessel ischemic changes. There is no hydrocephalus. Ace -white matter differentiation is normal. There is no acute intracranial hemorrhage. There is no mass, mass effect or midline shift. Posterior fossa is normal in appearance. Visualized portions of the orbits are normal with exception of bilateral lens replacement . Paranasal sinuses are well aerated. Mastoid air cells are well aerated. Scalp and calvaria are normal. IMPRESSION: No acute intracranial hemorrhage. Electronically signed by: Rosette Howell MD (08/12/2021 5:43 AM) [facility]
[2021-08-12] MEDS: LEVOTHYROXINE 50 MCG TABLET PO SCH (06:31)
[2021-08-12 07:00] VITALS: BP 160/72
[2021-08-12] MEDS: hydroCHLOROthiazide 25 MG TABLET PO SCH (08:39)
[2021-08-12] MEDS: ASPIRIN ENTERIC COATED 81 MG TABLET.DR. PO SCH (08:39)
[2021-08-12] MEDS: METOPROLOL SUCC 24HR ER 25 MG TAB.ER.24H. PO SCH (08:39)
[2021-08-12] MEDS: PANTOPRAZOLE 40 MG TABLET.DR. PO SCH (08:40)
[2021-08-12] MEDS: ONDANSETRON PF 4 MG/2 ML VIAL. IVP PRN (08:40)
[2021-08-12] MEDS: ISOSORBIDE MONONITRATE ER 30 MG TAB.ER.24H PO SCH (08:40)
[2021-08-12] MEDS: IV DEXTROSE 5 %-0.45 % NACL 1,000 ML IV SCH ×2 (08:41→16:43)
[2021-08-12 10:43] VITALS: BP 147/65
--- NOTE | 2021-08-12 11:01 | PDOC ---
PROGRESS NOTES Date of Service DATE: 08/12/21 TIME: 11:00 Subjective Subjective She admits continued nausea and her oral intake is low. Objective Objective Vital Signs Date Time Temp Pulse Resp B/P (MAP) Pulse Ox O2 Delivery O2 Flow Rate FiO2 08/12/21 10:43 99.7 78 16 147/65 (92) 95 Room Air 99.7 Intake and Output 08/12/21 07:00 Intake Total 720 ml Output Total 900 ml Balance -180 ml Intake Oral 720 ml Output Urine Total 900 ml Physical Exam Physical Exam She is alert,supine in bed with head end propped up and she is not getting up much. Plan Plan of Care To SNF when medically stable. Comment Review of Relevant I have reviewed the following items andrew (where applicable) has been applied. Medications Current Medications Aspirin (Ecotrin) 81 mg DAILY PO Last administered on 08/12/21at 08:39; Start 08/06/21 at 09:00 Hydrochlorothiazide (Hydrodiuril) 25 mg DAILY PO Last administered on 08/12/21at 08:39; Start 08/06/21 at 09:00 Isosorbide Mononitrate (Imdur) 30 mg DAILY PO Last administered on 08/12/21 08:40; Start 08/06/21 at 09:00 Levothyroxine Sodium (Synthroid) 50 mcg DAILY06 PO Last administered on 08/12/21at 06:31; Start 08/06/21 at 06:00 Lisinopril (Prinivil) 40 mg QHS PO Last administered on 08/11/21at 20:04; Start 08/06/21 at 21:00 Metoprolol Succinate (Toprol Xl) 25 mg DAILY PO Last administered on 08/12/21at 08:39; Start 08/06/21 at 09:00 Pantoprazole Sodium (Protonix) 40 mg DAILYAC PO Last administered on 08/12/21at 08:40; Start 08/06/21 at 07:30 Atorvastatin Calcium (Lipitor) 80 mg QHS PO Last administered on 08/11/21at 20:04; Start 08/06/21 at 21:00 Acetaminophen (Tylenol) 650 mg PRN Q6HRS PRN PO MILD PAIN / TEMP > 100.3'F Last administered on 08/08/21at 00:02; Start 08/06/21 at 03:45 Ondansetron HCl (Zofran) 4 mg PRN Q6HRS PRN IVP NAUSEA/VOMITING 1ST CHOICE Last administered on 08/12/21at 08:40; Start 08/06/21 at 03:45 Labetalol HCl (Normodyne Iv Push) 20 mg PRN Q2HR PRN IVP HYPERTENSION (2ND CHOICE) Last administered on 08/06/21at 08:28; Start 08/06/21 at 03:45 Lisinopril (Prinivil) 20 mg DAILY PO ; Start 08/06/21 at 14:30; Status UNV Hydralazine HCl (Apresoline Inj) 10 mg PRN Q4HRS PRN IVP ELEVATED BP, SEE COMMENTS Last administered on 08/06/21at 14:38; Start 08/06/21 at 14:30 Amlodipine Besylate (Norvasc) 10 mg DAILY PO Last administered on 08/12/21at 08:38; Start 08/06/21 at 14:30 Potassium Chloride (Klor-Con) 40 meq Q4HRS PO Last administered on 08/07/21at 15:55; Start 08/07/21 at 12:00; Stop 08/07/21 at 16:01; Status DC Potassium Chloride (Klor-Con) 40 meq BID PO Last administered on 08/08/21at 09:01; Start 08/07/21 at 21:00; Stop 08/08/21 at 20:59; Status DC Potassium Chloride (Klor-Con) 40 meq 1X ONCE PO ; Start 08/07/21 at 13:00; Stop 08/07/21 at 13:01; Status Cancel Sodium Chloride 250 ml @ 250 mls/hr Q1H IV Last administered on 08/08/21at 08:51; Start 08/08/21 at 08:15; Stop 08/09/21 at 11:59; Status DC Dextrose/Sodium Chloride 1,000 ml @ 75 mls/hr [id number] IV Last administered on 08/11/21at 20:00; Start 08/08/21 at 12:00 Magnesium Sulfate 50 ml @ 25 mls/hr 1X ONCE IV Last administered on 08/08/21at 12:59; Start 08/08/21 at 13:00; Stop 08/08/21 at 14:59; Status DC Tramadol HCl (Ultram) 50 mg PRN Q8HRS PRN PO MODERATE-SEVERE PAIN Last administered on 08/10/21at 22:42; Start 08/08/21 at 16:15 Prochlorperazine (Compazine) 25 mg PRN Q12HR PRN [place] NAUSEA/VOMITING Last administered on 08/11/21at 11:12; Start 08/11/21 at 11:00 Meclizine HCl (Antivert) 12.5 mg PRN Q6HRS PRN PO DIZZINESS Last administered on 08/11/21at 11:12; Start 08/11/21 at 11:00 Active Scripts Active Amlodipine Besylate 10 Mg Tablet 10 Mg PO DAILY 30 Days Reported Hydrochlorothiazide Tablet (Hydrochlorothiazide) 25 Mg Tablet 25 Mg PO DAILY Aspirin Ec (Aspirin) 81 Mg Tablet.dr 81 Mg PO DAILY [iron] 65 Mg PO DAILY Xanax (Alprazolam) 0.25 Mg Tablet 0.25 Mg PO PRN Q12HR PRN Prilosec Otc (Omeprazole Magnesium) 20 Mg Tablet.dr 20 Mg PO DAILY Crestor (Rosuvastatin Calcium) 40 Mg Tablet 20 Mg PO HS Isosorbide Mononitrate Er (Isosorbide Mononitrate) 30 Mg Tab.er.24h 30 Mg PO DAILY Synthroid (Levothyroxine Sodium) 50 Mcg Tablet 50 Mcg PO DAILYAC Lisinopril 40 Mg Tablet 40 Mg PO QHS Toprol Xl (Metoprolol Succinate) 25 Mg Tab.er.24h 25 Mg PO DAILY Vitals/I & O Vital Sign - Last 24 Hours 08/11/21 08/11/21 08/11/21 08/11/21 15:00 19:58 20:00 20:04 Temp 99.0 96.9 99.0 96.9 Pulse 65 70 70 Resp 18 18 B/P (MAP) 115/59 (77) 132/60 (84) 132/60 Pulse Ox 95 99 O2 Delivery Room Air Room Air Room Air 08/11/21 08/12/21 08/12/21 08/12/21 22:49 02:28 07:00 08:00 Temp 98.1 98.0 99.2 98.1 98.0 99.2 Pulse 63 71 80 Resp 18 16 16 B/P (MAP) 159/72 (101) 176/79 (111) 160/72 (101) Pulse Ox 97 97 97 O2 Delivery Room Air Room Air Room Air Room Air 08/12/21 08/12/21 08/12/21 08/12/21 08:38 08:39 08:40 10:43 Temp 99.7 99.7 Pulse 80 80 80 78 Resp 16 B/P (MAP) 160/72 160/72 160/72 147/65 (92) Pulse Ox 95 O2 Delivery Room Air Intake and Output 08/11/21 08/11/21 08/12/21 15:00 23:00 07:00 Intake Total 360 ml 360 ml 0 ml Output Total 250 ml 650 ml Balance 110 ml -290 ml 0 ml Justifications for Admission Other Justification OLEKSANDR BELL MD Aug 12, 2021 11:01
[2021-08-12] MEDS: PROCHLORPERAZINE 25 MG SUPP.RECT. PR PRN (11:08)
[2021-08-12] MEDS: traMADol 50 MG TABLET PO PRN (11:10)
--- NOTE | 2021-08-12 12:20 | PDOC ---
[facility] PROGRESS NOTE Date of Service DOS: DATE: 08/12/21 TIME: 12:19 Chief Complaint Chief Complaint Assessment/Plan Problem List: Acute encephalopathy Acute metabolic encephalopathy Acute electrolyte derangementhypernatremia suggestive of dehydration. Erythrocytosis suggestive of dehydration Hypertensive urgency JACKELINE due to vasomotor nephropathy ATN Dementia Hx of GERD Hx of HTN Hx of gastroparesis Hx of gastric sleeve Hx of hypothyroidism Hx of migraines Cardiology consulted for CAD work-up. Pending echo Pending brain MRI No obvious centrally acting medications currently. No obvious signs of infection on physical exam. No fevers or nuchal rigidity. CT head is negative for acute etiology. No history or signs of trauma Pending FeNa calculation for volume depletion Pending TSH, B12, folate levels Pending urine toxic drug screen Consider dementia prevention protocol Provide adequate lighting (open curtains during the day, turn the lights off at night) Provide frequent personal contact with family, friends, and staff or TV Encourage early and frequent mobilization Rehab screening ordered IV Haldol as needed for agitation, consider sitter as needed if non-redirectable agitation Avoid physical restraints, catheters or tubes, and benzodiazepines Nutrition consult if there is malnutrition or concern for vitamin deficiencies Continue IV fluids GI consult for gastroparesis Lovenox for DVT prophylaxis Protonix GI prophylaxis ADA diet Full code Discussed with RN and SW Dispo inpatient management as above History of Present Illness History of Present Illness 80-year-old female with past medical history of hypothyroidism, gastroparesis, hypertension who comes in with altered mental status. Family states that patient has been acting confused for 5 days and the patient also has been complaining of fatigue, nausea or vomiting. Patient was transferred from [facility] ER for evaluation with neurology and possible MRI of the brain to rule out stroke. Patient currently is AAO x4 but currently has bouts of confusion and forgetfulness and she tends to repeat herself during conversation. Denies any falls or obvious trauma. UA is negative for any signs of infection. Normal saline bolus was given at [facility] for possible dehydration. Per GI: She saw Dr. Weiss in clinic in 03/2021 for nausea. Notes indicate Reglan, Zofran, and e-mycin were unhelpful and cardiac stress test and echo were unrevealing. Recommendation made for cardiac cath prior to second GI opinion at . Reviewed notes from encounter w/ Dr. Ramirez at on . She reported spells of nausea for 3-4 days along w/ decreased appetite and early satiety. Previous GES @ [facility] showed 40% retention @ 4 hours per patient. Also c/o constipation (3-4 stools weekly). Recommendation to check cortisol and GES and to try Compazine 10mg TID PRN w/ possible plans to try Relgn if GES is abnormal. Records of suggested testing unavailable for review. The patient reports GES at was normal and that she stopped e-mycin and did well for a month. Records indicate that she's had multiple EGDs. S/p gastric sleeve. Normal colonoscopy in 2019. S/p cholecystectomy. Takes ASA QHS and Advil PRN for headaches which occur when she doesn't eat. Says she was compliant w/ medications (specifically HTN meds) at home and says she takes Prilosec and iron QD. 08/07/2021 No acute events overnight. Patient seen examined bedside. Does not like the food in the hospital. Denies any vomiting. Pleasantly confused and forgetful. Potassium of 2.9 will replace with IV NPO potassium chloride. 08/08/2021 No acute events or night. Patient seen examined bedside. Cardiac work-up essentially negative for ACS. I have recommended for the patient to consider going to [facility] for continued investigation for her gastroparesis. Patient Carmen tolerate some toast and broth. She has nausea with other foods. Patient still has some polycythemia which I think is related to her dehydration. I have started her D5 half NS at 75 cc/h and bolus her 250 half NS. We will have Dr. Garay she has had injections in her back in the past. Evaluate for back pain. Patient's chart, labs, images were reviewed and discussed with RN 08/09/2021 No acute events overnight. Patient seen examined bedside. All work-up is negative and all her review of her records have shown no reason for her gastroparesis. I will keep her on fluids today as she is still not eating very much. She is only able to tolerate some broth and toast. She is sitting on the commode several times last night and this morning and the nurse believes that she might have some urinary retention. UA is collected for possible UTI. CBC still shows hemoglobin of 16.1. I will continue her maintenance fluid today and continue to observe. Possible discharge tomorrow with her friend Radha who is also a nurse. Heavy snow today which presents transportation issues for many patients here today. Patient's chart, labs, images were reviewed and discussed with RN 08/10/2021 No acute events overnight. AF and VSS. Pending SNF placement. 08/11/2021 No acute events overnight patient seen examined bedside. Patient seen with breakfast tray and she is very picky with her meals. I instructed her to eat the carrots and she is able to swallow fine without any coughing spells. No nausea reported with carrots. Patient complained excessively with macaroni salad and she states that she never eats discounted stuff. Patient took a bite of macaroni salad but spotted out immediately. Patient's chart, labs, images were reviewed and discussed with RN 08/12/2021 No acute events overnight. Patient seen examined bedside. AF and VSS. Not much changes in her appetite. No swallowing deficits. Pending SNF placement. Patient's chart, labs, images were reviewed and discussed with RN Vitals/I&O Vitals/I&O: Vital Signs Date Time Temp Pulse Resp B/P (MAP) Pulse Ox O2 Delivery O2 Flow Rate FiO2 08/12/21 11:40 95 Room Air 08/12/21 11:10 16 08/12/21 10:43 99.7 78 147/65 (92) 99.7 I & O 08/11/21 08/11/21 08/12/21 15:00 23:00 07:00 Intake Total 360 ml 360 ml 0 ml Output Total 250 ml 650 ml Balance 110 ml -290 ml 0 ml Physical Exam General: Alert, Oriented X3, Cooperative, No acute distress Heart: Regular rate Abdomen: Soft, No tenderness Extremities: No clubbing, No edema, Normal pulses Skin: No rashes, No significant lesion Comment Review of Relevant I have reviewed the following items andrew (where applicable) has been applied. Justifications for Admission Other Justification JANES ANG MD Aug 12, 2021 12:20
[2021-08-12 15:00] VITALS: BP 136/61
[2021-08-12] MEDS: ACETAMINOPHEN 325 MG TABLET. PO PRN (16:35)
[2021-08-12 19:09] VITALS: BP 122/58
[2021-08-12] MEDS: ATORVASTATIN CALCIUM 40 MG TABLET. PO SCH (20:09)
[2021-08-12] MEDS: LISINOPRIL 20 MG TABLET PO SCH (20:10)
[2021-08-12 22:49] VITALS: BP 141/66
[2021-08-13 03:13] VITALS: BP 142/62
[2021-08-13 04:15] LABS: BASO # 0.1 x10^3/uL (0.0-0.2); BASO % 1 % (0-3); EOS # 0.2 x10^3/uL (0.0-0.7); EOS % 3 % (0-3); HEMATOCRIT 44.6 % (36.0-47.0); HEMOGLOBIN 14.8 g/dL (12.0-15.5); LYMPH # 1.9 x10^3/uL (1.0-4.8); LYMPH % 28 % (24-48); MEAN CORPUSCULAR HEMOGLOBIN 31 pg (25-35); MEAN CORPUSCULAR HGB CONC 33 g/dL (31-37); MEAN CORPUSCULAR VOLUME 92 fL (79-100); MONO % 14 % (0-9); NEUT # 3.7 x10^3/uL (1.8-7.7); NEUT % 54 % (31-73); PLATELET COUNT 185 x10^3/uL (140-400); RED BLOOD COUNT 4.83 x10^6/uL (3.50-5.40); RED CELL DISTRIBUTION WIDTH 14.5 % (11.5-14.5); WHITE BLOOD COUNT 6.9 x10^3/uL (4.0-11.0)
[2021-08-13 04:36] LABS: CALCIUM 8.6 mg/dL (8.5-10.1); CREATININE 0.8 mg/dL (0.6-1.0); GFR 68.8; MAGNESIUM 1.5 mg/dL (1.8-2.4); PHOSPHORUS 3.3 mg/dL (2.6-4.7)
[2021-08-13 04:43] LABS: POTASSIUM 2.8 mmol/L (3.5-5.1)
[2021-08-13] MEDS ORDERED: POTASSIUM CHLORIDE 20 MEQ TABLET.ER. PO ONE (05:30)
[2021-08-13] MEDS: LEVOTHYROXINE 50 MCG TABLET PO SCH (05:47)
[2021-08-13] MEDS: POTASSIUM CHLORIDE 10MEQ 100 ML IV SCH ×3 (05:48→08:41)
[2021-08-13 07:37] VITALS: BP 156/72
[2021-08-13] MEDS: ASPIRIN ENTERIC COATED 81 MG TABLET.DR. PO SCH (08:42)
[2021-08-13] MEDS: METOPROLOL SUCC 24HR ER 25 MG TAB.ER.24H. PO SCH (08:42)
[2021-08-13] MEDS: PANTOPRAZOLE 40 MG TABLET.DR. PO SCH (08:42)
[2021-08-13] MEDS: hydroCHLOROthiazide 25 MG TABLET PO SCH (08:42)
[2021-08-13] MEDS: ISOSORBIDE MONONITRATE ER 30 MG TAB.ER.24H PO SCH (08:46)
[2021-08-13] MEDS: IV DEXTROSE 5 %-0.45 % NACL 1,000 ML IV SCH (08:49)
[2021-08-13] MEDS ORDERED: POTASSIUM CHLORIDE 20 MEQ TABLET.ER. PO SCH ×2 (09:30→21:00)
[2021-08-13] MEDS ORDERED: MAGNESIUM SULFATE 2GM 50 ML IV ONE (10:00)
[2021-08-13] MEDS ORDERED: POTASSIUM CHLORIDE 10MEQ 100 ML IV SCH (10:00)
[2021-08-13 10:15] VITALS: BP 131/60
--- NOTE | 2021-08-13 10:52 | NUR ---
SS following up with discharge planning. SS reviewed pt chart and discussed with pt RN. Pt is currently on room air. COVID19 negative. PT/OT recommended halfway unit. Pt was accepted at [facility] but family declined due to only shared rooms being available. SS contacted pt's son and discussed. Pt's son agreeable to referrals to [facility], ; fax [phone], and [facility], ; fax [phone]. Pt accepted at [facility]. Physician notified. Pt will discharge today and go to [facility] at 1230 via [facility] transport [id number]. Pt, pt's RN, and pt's son notified. Addendum: 08/13/21 at 1217 by PUJA MENDES Transportation changed to 1430 due to discharge orders not being completed at this time. Pt, pt's RN, and pt's son notified.
--- NOTE | 2021-08-13 11:54 | PDOC ---
Date of Service: DATE: 08/13/21 TIME: 11:50 Subjective: Subjective: "I've been a lot better." Tells me not eating and then gets a headache. Objective: Objective: D/w nurse - eats some, no vomiting, plans to DC to [facility] this afternoon. Note has PRN Meclizine ordered. Vital Signs: Vital Signs Date Time Temp Pulse Resp B/P (MAP) Pulse Ox O2 Delivery O2 Flow Rate FiO2 08/13/21 10:15 98.9 69 18 131/60 (83) 97 Room Air 98.9 Labs: Laboratory Tests Test 08/13/21 03:40 White Blood Count 6.9 x10^3/uL Red Blood Count 4.83 x10^6/uL Hemoglobin 14.8 g/dL Hematocrit 44.6 % Mean Corpuscular Volume 92 fL Mean Corpuscular Hemoglobin 31 pg Mean Corpuscular Hemoglobin Concent 33 g/dL Red Cell Distribution Width 14.5 % Platelet Count 185 x10^3/uL Neutrophils (%) (Auto) 54 % Lymphocytes (%) (Auto) 28 % Monocytes (%) (Auto) 14 % Eosinophils (%) (Auto) 3 % Basophils (%) (Auto) 1 % Neutrophils # (Auto) 3.7 x10^3/uL Lymphocytes # (Auto) 1.9 x10^3/uL Monocytes # (Auto) 1.0 x10^3/uL Eosinophils # (Auto) 0.2 x10^3/uL Basophils # (Auto) 0.1 x10^3/uL Sodium Level 139 mmol/L Potassium Level 2.8 mmol/L Chloride Level 100 mmol/L Carbon Dioxide Level 31 mmol/L Anion Gap 8 Blood Urea Nitrogen 9 mg/dL Creatinine 0.8 mg/dL Estimated GFR (Cockcroft-Gault) 68.8 Glucose Level 98 mg/dL Calcium Level 8.6 mg/dL Phosphorus Level 3.3 mg/dL Magnesium Level 1.5 mg/dL Imaging: Head CT 08/12 IMPRESSION: No acute intracranial hemorrhage. PE: GEN: NAD LUNGS: CTAB HEART: RRR ABD: S/ND/NT NEURO/PSYCH: A & O 3, forgetful, ?depressed A/P: Encephalopathy (?dementia), HTN (better) - neurology and cardiology have seen Chronic n/v, s/p gastric sleeve - recently had second opinion at , reports h/o gastroparesis w/ recent normal GES Hypokalemia, hypomagnesemia - per primary -- Varying history from staff and patient - I think dementia might contribute - seems to be eating more than she thinks? She said she didn't have a menu to look at - it was on her bedside table - I handed it to her and encouraged her to order something that looked appetizing. DC per primary. Continue PPI, consider retrying prokinetic if indicated (though neither e-mycin or Reglan are good long-term options and she has reported lack of efficacy). Justicifation of Admission Dx: Justifications for Admission: Justification of Admission Dx: Yes PERICO PICKRAD Aug 13, 2021 11:54
[2021-08-13] MEDS ORDERED: AMLO-187 PO ×2 (12:15→12:19)
[2021-08-13] MEDS ORDERED: METO5TAB55 PO ×2 (12:15→12:19)
[2021-08-13 14:18] VITALS: BP 124/70
--- NOTE | 2021-08-13 14:43 | NUR ---
Discharge Note: DIEGO,ERLYS A6 [facility] Discharge instructions and discharge home medications reviewed with Other facility and a copy given. All questions have been answered and understanding verbalized. The following instructions and handouts were given: altered mental status, confusion, dehydration. Patient discharged to [facility] with transport via wheelchair.
--- NOTE | 2021-08-15 21:26 | PDOC3 ---
[facility]-Discharge Summary Date of Admission: Date of Admission: Aug 06, 2021 Date of Discharge: Date of Discharge: Aug 13, 2021 Discharge Diagnosis: Discharge Diagnosis: Assessment/Plan Problem List: Acute encephalopathy Acute metabolic encephalopathy Acute electrolyte derangementhypernatremia suggestive of dehydration. Erythrocytosis suggestive of dehydration Hypertensive urgency JACKELINE due to vasomotor nephropathy ATN Dementia Hx of GERD Hx of HTN Hx of gastroparesis Hx of gastric sleeve Hx of hypothyroidism Hx of migraines Hospital Course: Hospital Course: 80-year-old female with past medical history of hypothyroidism, gastroparesis, hypertension who comes in with altered mental status. Family states that patient has been acting confused for 5 days and the patient also has been complaining of fatigue, nausea or vomiting. Patient was transferred from [facility] ER for evaluation with neurology and possible MRI of the brain to rule out stroke. Patient currently is AAO x4 but currently has bouts of confusion and forgetfulness and she tends to repeat herself during conversation. Denies any falls or obvious trauma. UA is negative for any signs of infection. Normal saline bolus was given at [facility] for possible dehydration. Per GI: She saw Dr. Weiss in clinic in 03/2021 for nausea. Notes indicate Reglan, Zofran, and e-mycin were unhelpful and cardiac stress test and echo were unrevealing. Recommendation made for cardiac cath prior to second GI opinion at . Reviewed notes from encounter w/ Dr. Ramirez at on . She reported spells of nausea for 3-4 days along w/ decreased appetite and early satiety. Previous GES @ [facility] showed 40% retention @ 4 hours per patient. Also c/o constipation (3-4 stools weekly). Recommendation to check cortisol and GES and to try Compazine 10mg TID PRN w/ possible plans to try Relgn if GES is abnormal. Records of suggested testing unavailable for review. The patient reports GES at was normal and that she stopped e-mycin and did well for a month. Records indicate that she's had multiple EGDs. S/p gastric sleeve. Normal colonoscopy in 2018. S/p cholecystectomy. Takes ASA QHS and Advil PRN for headaches which occur when she doesn't eat. Says she was compliant w/ medications (specifically HTN meds) at home and says she takes Prilosec and iron QD. 08/07/2021 No acute events overnight. Patient seen examined bedside. Does not like the food in the hospital. Denies any vomiting. Pleasantly confused and forgetful. Potassium of 2.9 will replace with IV NPO potassium chloride. 08/08/2021 No acute events or night. Patient seen examined bedside. Cardiac work-up essentially negative for ACS. I have recommended for the patient to consider going to [facility] for continued investigation for her gastroparesis. Patient Carmen tolerate some toast and broth. She has nausea with other foods. Patient still has some polycythemia which I think is related to her dehydration. I have started her D5 half NS at 75 cc/h and bolus her 250 half NS. We will have Dr. Garay she has had injections in her back in the past. Evaluate for back pain. Patient's chart, labs, images were reviewed and discussed with RN 08/09/2021 No acute events overnight. Patient seen examined bedside. All work-up is negative and all her review of her records have shown no reason for her gastroparesis. I will keep her on fluids today as she is still not eating very much. She is only able to tolerate some broth and toast. She is sitting on the commode several times last night and this morning and the nurse believes that she might have some urinary retention. UA is collected for possible UTI. CBC still shows hemoglobin of 16.1. I will continue her maintenance fluid today and continue to observe. Possible discharge tomorrow with her friend Radha who is also a nurse. Heavy snow today which presents transportation issues for many patients here today. Patient's chart, labs, images were reviewed and discussed with RN 08/10/2021 No acute events overnight. AF and VSS. Pending SNF placement. 08/11/2021 No acute events overnight patient seen examined bedside. Patient seen with breakfast tray and she is very picky with her meals. I instructed her to eat the carrots and she is able to swallow fine without any coughing spells. No nausea reported with carrots. Patient complained excessively with macaroni salad and she states that she never eats discounted stuff. Patient took a bite of macaroni salad but spotted out immediately. Patient's chart, labs, images were reviewed and discussed with RN 08/12/2021 No acute events overnight. Patient seen examined bedside. AF and VSS. Not much changes in her appetite. No swallowing deficits. Pending SNF placement. Patient's chart, labs, images were reviewed and discussed with RN By day of discharge, pt was clinically stable and ready for discharge. Pt will need to arrange an initial visit with [facility] in order to determine an etiology of her gastroparesis. However, I believe she has more of a component of Dementia where she does have some failure to thrive, she will be discharged to SNF. Rest of hospital course was uneventful Disposition: Disposition/Orders: D/C to Another Facility Activity: Activity: Resume previous activity Medications: Home Meds Active Scripts Metoclopramide Hcl (REGLAN) 5 Mg Tablet, 5 MG PO BIDAC PRN for NAUSEA/VOMITING, #60 TAB 3 Refills Prov:JANES ANG MD 08/13/21 Amlodipine Besylate (AMLODIPINE BESYLATE) 10 Mg Tablet, 10 MG PO QHS for blood pressure for 30 Days, #30 TAB 3 Refills Prov:JANES ANG MD 08/13/21 Reported Medications Hydrochlorothiazide (HYDROCHLOROTHIAZIDE TABLET ) 25 Mg Tablet, 25 MG PO DAILY for DIURETIC, TAB 0 Refills 08/06/21 Aspirin (ASPIRIN EC) 81 Mg Tablet.dr, 81 MG PO DAILY for , TAB.SR 08/06/21 [iron] No Conflict Check, 65 MG PO DAILY 08/06/21 Alprazolam (XANAX) 0.25 Mg Tablet, 0.25 MG PO PRN Q12HR PRN for ANXIETY / AGITATION, TAB 0 Refills 08/06/21 Omeprazole Magnesium (PRILOSEC OTC) 20 Mg Tablet.dr, 20 MG PO DAILY for , TAB 08/06/21 Rosuvastatin Calcium (CRESTOR) 40 Mg Tablet, 20 MG PO HS for FOR CHOLESTEROL, #30 TAB 0 Refills 08/06/21 Isosorbide Mononitrate (ISOSORBIDE MONONITRATE ER) 30 Mg Tab.er.24h, 30 MG PO DAILY for , TAB.SR 08/06/21 Levothyroxine Sodium (SYNTHROID) 50 Mcg Tablet, 50 MCG PO DAILYAC for THYROID SUPPLEMENT, #30 TAB 0 Refills 08/06/21 Lisinopril (LISINOPRIL) 40 Mg Tablet, 40 MG PO QHS for FOR HYPERTENSION, #30 TAB 0 Refills 08/06/21 Metoprolol Succinate (TOPROL XL) 25 Mg Tab.er.24h, 25 MG PO DAILY for FOR HYPERTENSION, #30 TAB 0 Refills 08/06/21 Scheduled Amlodipine Besylate (Amlodipine Besylate), 10 MG PO QHS Aspirin (Aspirin Ec), 81 MG PO DAILY, (Reported) Hydrochlorothiazide (Hydrochlorothiazide Tablet ), 25 MG PO DAILY, (Reported) Isosorbide Mononitrate (Isosorbide Mononitrate Er), 30 MG PO DAILY, (Reported) Levothyroxine Sodium (Synthroid), 50 MCG PO DAILYAC, (Reported) Lisinopril (Lisinopril), 40 MG PO QHS, (Reported) Metoprolol Succinate (Toprol Xl), 25 MG PO DAILY, (Reported) Omeprazole Magnesium (Prilosec Otc), 20 MG PO DAILY, (Reported) Rosuvastatin Calcium (Crestor), 20 MG PO HS, (Reported) [iron], 65 MG PO DAILY, (Reported) Scheduled PRN Alprazolam (Xanax), 0.25 MG PO PRN Q12HR PRN for ANXIETY / AGITATION, (Reported) Metoclopramide Hcl (Reglan), 5 MG PO BIDAC PRN for NAUSEA/VOMITING Justicifation of Admission Dx: Justifications for Admission: Justification of Admission Dx: Yes JANES ANG MD Aug 15, 2021 21:26
== END 2021-08-13 14:45 | DRG 70 ==
LOC: 6 SOUTH 01:25
PROVIDERS: ADMIT Internal Medicine; ATTEND Internal Medicine
DX: G93.41 Metabolic encephalopathy (principal); N17.0 Acute kidney failure with tubular necrosis; E87.0 Hyperosmolality and hypernatremia; D64.9 Anemia, unspecified; D75.1 Secondary polycythemia; E03.9 Hypothyroidism, unspecified; E78.5 Hyperlipidemia, unspecified; E83.42 Hypomagnesemia; E86.0 Dehydration; E87.6 Hypokalemia; F03.90 Unspecified dementia, unspecified severity, without behavioral disturbance, psychotic disturbance, mood disturbance, and anxiety; G43.909 Migraine, unspecified, not intractable, without status migrainosus; G62.9 Polyneuropathy, unspecified; G89.29 Other chronic pain; I10 Essential (primary) hypertension; I16.0 Hypertensive urgency; I25.10 Atherosclerotic heart disease of native coronary artery without angina pectoris; K21.9 Gastro-esophageal reflux disease without esophagitis; K59.00 Constipation, unspecified; M47.815 Spondylosis without myelopathy or radiculopathy, thoracolumbar region; M47.816 Spondylosis without myelopathy or radiculopathy, lumbar region; Z79.82 Long term (current) use of aspirin; Z82.49 Family history of ischemic heart disease and other diseases of the circulatory system; Z83.3 Family history of diabetes mellitus; Z85.038 Personal history of other malignant neoplasm of large intestine; Z90.49 Acquired absence of other specified parts of digestive tract; Z90.710 Acquired absence of both cervix and uterus; Z98.84 Bariatric surgery status
CPT/HCPCS: 36415; 70450; 70551; 80048; 80061; 81001; 82607; 83735; 84100; 84443; 85025; 85651; 86140; 93306; J0360; J2405; J3475; J3480; J3490; J7042; 97530-GP; 97535-GO; C8929; G0378; J8597